=== PATIENT | female | born 1995 | race Caucasian/White ===

== ENCOUNTER 2016-10-09 23:27 | Emergency (ER) | payer OTHER ==
[~2016-10-09] VITALS: Ht 170.2 cm; Wt 62.8 kg
[~2016-10-09 23:27] MED LIST: ALBU8.5H4 IH
[2016-10-09 23:31] VITALS: BP 126/85; PULSE 106; RESP 16; O2SAT 98
--- NOTE | 2016-10-09 23:45 | ED.REPORT ---
HPI-General Illness Date of Service Oct 09, 2016 ED Provider: Amor Meza MD Patient is a 21 year old female with a history of polysubstance abuse who presents to ED complaining of recent changes in her mentation and that she generally feels unwell. The patient states that she has recently placed herself into an environment where she is around alcohol and illicit drugs. She now feels as if "everything is in a fog". Patient states that it takes a long time for her to process information and that everything is slow. The patient admits that she "does not know" if this makes her want to use illicit drugs again. Patient presents to the ED with the AA bible in hand and believes that by her description she is going through "post acute withdrawal". The patient admits that she previously used alcohol and "all mind altering substances" including heroin and methamphetamine. She has not used in the past 5 months. Her typical routine is to go to [facility] in the mornings at [facility]. Her counselor is Stepan Souza. The rest of her day is spent with her boyfriend and that she is trying to start her life over. She also goes to meetings for Alcoholic Anonymous, last going to a meeting this evening. She reports speaking with her sponsor santiago about how she is feeling. Patient states that she has not worked in over a year and she does not currently go to school. Patient denies a mental health diagnosis. She feels that she needs to be admitted to the hospital today. Patient went through detox at [facility] in May of last year and states that this started the process of sobriety. Nursing Notes Stated Complaint: SUBSTANCE ABUSE Chief Complaint: Substance Abuse Nursing Notes Reviewed: Yes Allergies: Coded Allergies: No Known Drug Allergies (Verified Allergy, Unknown, 10/09/16) Cat Dander (Verified Adverse Reaction, Mild, DIFFICULT BREATHING, 10/09/16) Uncoded Allergies: ONIONS (Allergy, Mild, RASH, 08/23/12) Scheduled Albuterol-Expunged Drug, Do Not Renew! (Albuterol-Expunged Drug, Do Not Renew!) 8.5 Gm Hfa.aer.ad 2 PUFFS IH PRN General Time Seen by MD: 23:45 Chief Complaint Altered mental status, Not feeling well Hx Obtained From: Patient Arrived By: Walk-in Sudden in Onset?: No Onset Occurred: More than a week ago... Recent Healthcare: No recent doctor visit, No recent hospitalization Similar Sx Previous: No Past Medical History Past Medical History RAD during childhood History of alcohol and drug abuse, 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 Past Surgical History pilonidal cyst Smoking History Never Smoker Social History Alcohol Use: "Social" Drug Use: IV drugs, Meth Other Social History: Good social support, Local resident Ambulatory Status Independent Review of Systems Full Review of Systems Constitutional: Denies: Chills, Fever Psychiatric: Reports: Change mental status, Depression Complete sys rev & neg: except as marked. Physical Exam Vital Signs Vital Signs Date Time Temp Pulse Resp B/P Pulse Ox O2 Delivery O2 Flow Rate FiO2 10/10/16 01:03 37.6 89 18 121/63 100 Room Air 10/09/16 23:31 36.4 106 16 126/85 98 Room Air Initial VS: Reviewed Extremities: Vascular intact, Neuro intact Neurologic: Alert, Oriented, Nonfocal General/Constitutional: Awake, Alert, Well hydrated Distress / Hydration: Positive: Distress moderate no tremors or evidence of withdrawal Head / Eyes: Atraumatic, Normocephalic, PERRL, EOMI ENT: Airway patent, Mucous membranes moist Neck: Supple, Full range of motion Respiratory / Chest: Breath sounds NL, Breath sounds = bilat, No respiratory distress, No rales, No rhonchi, No wheezing Cardiovascular: Heart rate NL, Regular rhythm, Heart sounds NL, No murmurs Abdomen: Soft, Non-tender, No guarding, No rebound Skin: No rash, Warm, Dry Rash / Lesion Pattern: Negative: Track palafox Psychiatric: No hallucinations Abnormal Mood/Affect: Positive: Depressed, Flat affect Interpretation & Diagnostics Interpretation & Diagnostics: Urine Tox Screen: Negative Breathalyzer: 0.00 Lab Results Interpretation Test 10/09/16 23:55 Hold Urine Received (Received) Re-Eval/Medical Decision Med Decision/Clinical Course 21-year-old female who has been completely clean and sober for 5 months. She has ongoing problems with depression, lack of initiative, and feels that she is having subacute withdrawal symptoms. She does not feel comfortable, although she is not suicidal. Arrangements were made for her to go to [facility]. Source of Hx: Old records Time of Eval: 00:45 Patient Status: Condition improved Re-Evaluation/Progress Note: Patient has been cleared for [facility] and she will be able to go there this morning. Patient understands and agrees with this plan. Discharge instructions and follow-up discussed. All questions were addressed. Return to the ED warnings given. Consultation : Call Returned at: 23:57 Note: Spoke with [facility]. They have a female bed available for the patient. Counseled Regarding: Diagnosis, Need for follow-up, When/why to return to ED Discharge & Departure Primary Impression: Depression Depression Type: reactive depression Qualified Code: F32.9 - Major depressive disorder, single episode, unspecified Additional Impression: Substance abuse Disposition: Home Discharge Condition All VS Reviewed: Yes Condition: Stable Patient Instructions: Major Depression (DC) Additional Instructions: Arrangements were made for you to go to [facility]. GO directly there by cab. Harrison Attestation Portions of this note were transcribed by Ava Stout. I, Dr. Meza personally performed the history, physical exam and medical decision-making; I reviewed and confirmed the accuracy of the information in the transcribed note. Signed by: Harrison Reeves, 10/10/2016 0053 Amor Meza MD Oct 09, 2016 23:45 Ava Stout Oct 09, 2016 23:57
[2016-10-10 01:03] VITALS: BP 121/63; PULSE 89; RESP 18; O2SAT 100
== END 2016-10-10 01:11 | disposition home or self-care (01) ==
LOC: SED 23:27
DX: F32.9 Major depressive disorder, single episode, unspecified (principal); F19.230 Other psychoactive substance dependence with withdrawal, uncomplicated; F10.21 Alcohol dependence, in remission

== ENCOUNTER 2016-10-11 08:39 | Emergency (ER) | payer OTHER ==
[~2016-10-11] VITALS: Ht 170.2 cm; Wt 62.0 kg
[2016-10-11 08:52] VITALS: BP 131/86; PULSE 142; RESP 48; O2SAT 98
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
[2016-10-11] MEDS ORDERED: 0.9% Sodium Chloride 1,000 ML IV ONE (10:05)
[2016-10-11] MEDS ORDERED: Haloperidol 5 mg/mL Inj IM ONE (10:05)
[2016-10-11 10:16] LABS: APPEARANCE,URINE HAZY (CLEAR,HAZY); COLOR,URINE YELLOW (YELLOW); OCCULT BLOOD,URINE LARGE (NEGATIVE); PH,URINE 5.5 (5.0-8.0)
[2016-10-11 10:18] LABS: UROBILINOGEN,URINE NORMAL (NORMAL)
[2016-10-11 10:57] LABS: BASOPHILS % (AUTO) 0.2 % (0-3); EOSINOPHILS % (AUTO) 0 % (0-5); MONOCYTES % (AUTO) 9.1 % (4-12); Mean Corpuscular Hemoglobin 27.7 pg (27.0-35.0); Mean Corpuscular Volume 79.8 fL (81-100); NEUTROPHILS % (AUTO) 80.4 % (40-74); Platelet Count 259 bil/L (150-400)
[2016-10-11 11:27] VITALS: BP 125/48; PULSE 101; RESP 16; O2SAT 99
[2016-10-11 15:39] VITALS: BP 92/55; PULSE 92; O2SAT 97
[2016-10-11 18:45] VITALS: BP 103/63; PULSE 120; O2SAT 96
[2016-10-11 19:05] VITALS: BP 103/63; PULSE 120; RESP 16; O2SAT 96
== END 2016-10-11 19:05 | disposition home or self-care (01) ==
LOC: SED 08:39
DX: F43.0 Acute stress reaction (principal); F19.20 Other psychoactive substance dependence, uncomplicated; F17.200 Nicotine dependence, unspecified, uncomplicated
CPT/HCPCS: 36415; 80053; 81000; 81025; 84443; 85025; 87086; 87088; 93005; 96360; 96372; 99285; G0480; J1200; J1630; J2060; J7030

== ENCOUNTER 2016-10-22 12:19 | Emergency (ER) | payer OTHER ==
[~2016-10-22] VITALS: Ht 170.2 cm; Wt 63.0 kg
[2016-10-22 12:32] VITALS: BP 99/66; PULSE 86; RESP 10; O2SAT 96
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
[2016-10-22 17:29] LABS: BASOPHILS % (AUTO) 0.5 % (0-3); EOSINOPHILS % (AUTO) 1.4 % (0-5); MONOCYTES % (AUTO) 18.6 % (4-12); Mean Corpuscular Hemoglobin 27.3 pg (27.0-35.0); Mean Corpuscular Volume 80.4 fL (81-100); NEUTROPHILS % (AUTO) 56.3 % (40-74); Platelet Count 221 bil/L (150-400)
[2016-10-22 18:59] VITALS: BP 114/68; PULSE 100; O2SAT 95
== END 2016-10-22 19:20 ==
LOC: SED 12:19
DX: F43.0 Acute stress reaction (principal); F17.200 Nicotine dependence, unspecified, uncomplicated; Z87.09 Personal history of other diseases of the respiratory system

== ENCOUNTER 2016-10-25 09:05 | Inpatient (IN) | payer MEDICAID, OTHER ==
[~2016-10-25] VITALS: Ht 162.6 cm; Wt 61.2 kg
[2016-10-25 09:23] VITALS: BP 136/92; PULSE 94; RESP 16; O2SAT 98
--- NOTE | 2016-10-25 09:30 | ED.REPORT ---
HPI-Psychiatric Illness Date of Service Oct 25, 2016 ED Provider: Jesus Nguyen MD 21 year old female with a history of suicide attempt, and polysubstance abuse presents to the ER due to anxiety exacerbation, and inability to communicate, per male railroad hand. Associated symptom of insomnia in recent days. Contract Accountant mentions that he has seen her in a similar state some weeks ago. He denies any recent expression of suicidal ideation, homicidal ideation, or similar from the patient. Patient was seen here in the ER three days ago for similar. History is difficult to obtain due to patient's current catatonia. Nursing Notes Stated Complaint: DISTRESS,UNABLE TO COMMUNICATE Chief Complaint: Psychiatric Complaint Nursing Notes Reviewed: Yes Allergies: Coded Allergies: No Known Drug Allergies (Verified Allergy, Unknown, 10/09/16) Cat Dander (Verified Adverse Reaction, Mild, DIFFICULT BREATHING, 10/09/16) Uncoded Allergies: ONIONS (Allergy, Mild, RASH, 08/23/12) No Active Prescriptions or Reported Meds General Time Seen by MD: 09:15 Chief Complaint Anxious, Other (Unable to Communicate) Hx Obtained From: Spouse Arrived By: Walk-in Onset Occurred: Onset unknown Related History: Reports: Alcohol abuse, Illicit drug use, Prior suicide attempt(s) Recent Healthcare: Recent doctor visit Similar Sx Previous: Yes Risk-Psychiatric Illness Suicide Risk Stratification Suicide Risk Factors - Adult: : Alcohol use: Previous attempt: Substance abuse RF Statements: Risk factors reviewed Past Medical History Past Medical History RAD during childhood History of alcohol and drug abuse, 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 Past Surgical History pilonidal cyst Smoking History Current Every Day Smoker Social History Alcohol Use: "Social" Drug Use: IV drugs, Meth Other Social History: Good social support, Local resident Occupation lives with roommate 10/22/2016 has supportive [facility] Ambulatory Status Independent Review of Systems Unable to Obtain ROS Uncooperative (Catatonic) Physical Exam Initial Vital Signs Vital Signs (First) Date Time Temp Pulse Resp B/P Pulse Ox O2 Delivery O2 Flow Rate FiO2 10/25/16 09:23 36.4 94 16 136/92 98 Room Air Initial VS: Reviewed Head / Eyes: Atraumatic, Normocephalic Neck: Supple, Non-tender, Full range of motion Extremities: Vascular intact, Neuro intact, No swelling, No tenderness Skin: Warm, Dry, No cyanosis General/Constitutional: Awake, Alert, Well developed, Well nourished Unable to Evaluate: Positive: Catatonic Interpretation & Diagnostics Lab Results Interpretation Result Diagram: 10/25/16 0957 10/25/16 0957 Test 10/25/16 09:57 10/25/16 16:11 White Blood Count 4.0th/mm3 (3.8-10.1) Red Blood Count 4.60mil/mm3 (3.90-5.20) Hemoglobin 12.7g/dL (12.0-15.6) Hematocrit 37.2% (35.0-46.0) Mean Corpuscular Volume 80.9fL (81-100) Mean Corpuscular Hemoglobin 27.6pg (27.0-35.0) Mean Corpuscular Hemoglobin Concent 34.1% (32.0-37.0) Red Cell Distribution Width 13.9% (12.3-15.4) Platelet Count 220bil/L (150-400) Neutrophils (%) (Auto) 62.5% (40-74) Lymphocytes (%) (Auto) 25.6% (14-46) Monocytes (%) (Auto) 11.6% (4-12) Eosinophils (%) (Auto) 0% (0-5) Basophils (%) (Auto) 0.3% (0-3) Sodium Level 139mEq/L (134-144) Potassium Level 3.6mEq/L (3.5-5.2) Chloride Level 104mEq/L (97-108) Carbon Dioxide Level 16mmol/L (18-29) Blood Urea Nitrogen 7mg/dL (6-20) Creatinine 0.52mg/dL (0.57-1.00) Estimat Glomerular Filtration Rate 213mL/min (>59) Glucose Level 103mg/dL (60-99) Calcium Level 8.8mg/dL (8.5-10.1) Total Bilirubin 0.3mg/dL (0.0-1.2) Aspartate Amino Transf (AST/SGOT) 16U/L (0-50) Alanine Aminotransferase (ALT/SGPT) 10U/L (0-32) Alkaline Phosphatase 71U/L (25-150) Total Protein 7.4g/dL (6.4-8.4) Albumin 4.5g/dL (3.4-5.0) Thyroid Stimulating Hormone (TSH) 1.580uIU/mL (0.450-4.500) Hold Holloway Top Tube Received (Received) Alcohols < 10mg/dL (0-10) Hold Urine Received (Received) Re-Eval/Medical Decision Med Decision/Clinical Course 21-year-old female history of substance abuse, suicidal ideation presenting brought in by boyfriend after she has not been talking for several days. Also with no sleep. Patient refuses to answer my questions. She appears catatonic on exam. She does follow with her eyes. Her urine tox is negative. Her labs show no medical indication for her symptoms. I believe she should likely be admitted to the psychiatric floor. The DPOA is to evaluate. Passed off to Dr Gonzalez at shift change. Source of Hx: Old records Consultation : Call Returned at: 17:46 Note: Discussed patient case with mental health professional. Recommends admission. Discharge & Departure Shift Change Sign-Out Patient Care Transferred: Yes Discussed Complaint(s): Yes Laboratory Evaluation: Lab evaluation discussed Discharge Condition All VS Reviewed: Yes Condition: Stable Referrals: NOPCP (PCP) Care Transferred to: Dr. Gonzalez Care Transferred at: 18:00 Harrison Attestation Portions of this note were transcribed by Kinza Cannon. I, Dr. Nguyen, personally performed the history, physical exam and medical decision-making; I reviewed and confirmed the accuracy of the information in the transcribed note. Signed by: Harrison Connor, 10/25/2016 and 17:46 Jesus Nguyen MD Oct 25, 2016 09:30 KINZA CANNON Oct 25, 2016 09:48
[2016-10-25 10:07] LABS: BASOPHILS % (AUTO) 0.3 % (0-3); EOSINOPHILS % (AUTO) 0 % (0-5); MONOCYTES % (AUTO) 11.6 % (4-12); Mean Corpuscular Hemoglobin 27.6 pg (27.0-35.0); Mean Corpuscular Volume 80.9 fL (81-100); NEUTROPHILS % (AUTO) 62.5 % (40-74); Platelet Count 220 bil/L (150-400)
[2016-10-25 18:27] VITALS: BP 118/68; PULSE 83; RESP 18; O2SAT 99
[2016-10-25 21:19] VITALS: BP 147/90; PULSE 140; RESP 32; O2SAT 99
[2016-10-25] MEDS ORDERED: MELA5TAB14 PO (21:41)
[2016-10-25] MEDS ORDERED: KETO5DRO68 BOTH_EYES (21:41)
[2016-10-25] MEDS ORDERED: MULT-140 PO (21:41)
[2016-10-25 22:23] VITALS: BP 95/51; PULSE 82; RESP 22; O2SAT 92
[2016-10-25] MEDS ORDERED: Magnesium Hydroxide 10 mL Oral Concentration PO PRN (23:30)
[2016-10-25] MEDS ORDERED: Benzocaine-Menthol Lozenge 2/Pkg PO PRN (23:30)
[2016-10-25] MEDS ORDERED: Alum-Mag Hydrox-Simeth 30 mL Suspension PO PRN (23:30)
[2016-10-25] MEDS: LORazepam 1 mg Tablet PO PRN (23:55)
--- NOTE | 2016-10-26 04:44 | NUR ---
Nursing Admit note DMITRI'ed patient from our ED deemed Gravely Disabled at 1999 on 10/25/16. Pt is on a 72 hour DMITRI. Pt medicated with Valium in ED and received Ambien and Ativan upon arrival to unit at 2215. Pt behavior in catatonic in nature. Pt ambulates around unit and into other patients rooms. Pt follows direction in an vary latent manner. Pt able to perform ADLs independently if she wants to. Pt was seen in ED on 10/22/16 with c/o difficulty with depression and increased difficulty speaking to people or leaving home to perform ADLs. 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 Pt clean and sober since 05/29 and involved with [employer]. 0445 Pt out to common area pointing at mouth and reported in whisper that she cant talk. Pt with significant halitosis and opens her mouth very minimally. Pt given water and Ativan at that time and was noted to then urinate on the floor and ambulate back to her room.
--- NOTE | 2016-10-26 05:22 | NUR ---
Nursing note: Please disregard duplicate interventions entered in error on wrong patient. IT notified for assistance to correct.
[2016-10-26] MEDS: LORazepam 1 mg Tablet PO PRN ×3 (05:51→17:59)
--- NOTE | 2016-10-26 11:42 | NUR ---
Nursing Day Shift- S-"Tell me what I can do to help with your questions. I'm scared. What should I do." O- Pt. appeared asleep at the start of the day shift. She remained that way until 0900, for 5 plus total hours of sleep. Pt. walked out to the , stopped and stood still with a lost expression. Pt. was shown her breakfast tray and continued to stand without touching her food. Staff asked the Pt. how she was feeling, She stood staring intently and slowly opened her mouth slightly, but no words were spoken. Pt. slowly, after a long delay, had a few brief responses to multiple questions. She denied being in pain, Stated "yes" to loud bothersome voices and thoughts of harming herself. She denied drug use other then Marijuana in the past few weeks, and the above sentence was the longest she spoke. Pt. was able to contract to not harm herself here. Dr. Molina was informed and ordered Ativan 1 mg PO PRN. It was given at 1015. Pt. then rested in her bed after being escorted there by staff. She came back out 1 hour later and appeared slightly less lost and confused. She eat 40% lunch, then returned to her room. A- Internally preoccupied, fearful, lost and confused appearing. Ativan 1 mg slightly helpful. Pt. denied having any home medications. P- Pt. was able to say she had been at [facility]. Obtain records. Cont. TP.
[2016-10-26 12:04] VITALS: BP 125/85; PULSE 167; RESP 14
[2016-10-26] MEDS ORDERED: Ketotifen 0.025% 5 mL Ophthalmic Solution BOTH_EYES PRN (13:40)
[2016-10-26] MEDS: risperiDONE 1 mg Tablet PO SCH ×2 (14:44→20:58)
[2016-10-26] MEDS ORDERED: EYE BOTH_EYES PRN (15:54)
[2016-10-26] MEDS ORDERED: KETOTIFEN BOTH_EYES PRN (15:54)
--- NOTE | 2016-10-26 16:50 | NUR ---
Observations 0700 to 1900 Pt affect and mood was flat, mute, confused and preoccupied. Pt eye contact was ok. Pt attended community meeting and set a daily goal. Pt was unsocial with staff when approached giving a blank stare with lips quivering. Pt walked in hallway with peer. Pt attended meals in D.R. picked at breakfast but ate 50% of lunch. Pt maintained behavior throughout the shift. Pt was polite, pleasant and cooperative. Pt was isolative and in her room most of the shift. Pt is internally preoccupied and responding to internal stimuli. Pt was observed every 15 minutes throughout the shift as ordered. Addendum: 10/27/16 at 1125 by [facility] DMITRI patient still unable to sign admission paperwork due to confusion but she did verbally agree to safety no harm contract.
--- NOTE | 2016-10-26 18:10 | NUR ---
Case Management/Counseling S/O: Patient only slept 2.5 hours last night. She denies S/I and H/I. She also denies auditory and visual hallucinations. Depression is 0/10 and anxiety is "high"/10. A: Patient is cooperative, internally preoccupied, fearful, lost, confused, latent speech, poor insight, poor judgment. P: Follow care plan, coordinate out-patient providers.
--- NOTE | 2016-10-26 22:56 | NUR ---
NURSING NOTE [id number] Mood: unable to solicit a mood statement from pt. Affect: blunted, restricted, [id number] facial expressions Behavior: resting in bed at start of shift until 1800 when she came out to the DR. She was given a dinner tray but just stared at it and pierced a piece of food with her fork but could not raise it to eat. She stared helplessly at this magazine writer as though she did not know what to do next. Despite prompting, pt. did not eat. When asked if she was in pain she nodded but could not articulate where. She pointed to her L shoulder. Ibuprofen 600 mg given. Her boyfriend visited. Later in the shift she was able to express herself a bit more and approached this magazine writer and asked to take a shower and asked for feminine products and clean clothes. She was med compliant this evening. Thought processes: pt. unable to answer any of this writers questions re: thought content. Pt. shook head when asked if she was suicidal. She appears lost and confused. PRNs: Ativan 1 mg @ 1800 Ibuprofen 600 mg @ 1800 Ambien 5 mg @ HS
--- NOTE | 2016-10-27 05:31 | NUR ---
nursing, nights, 11-7 s/o- has appeared to sleep after 2129 during q 15 minute assessments. a- no apparent distress. p- monitor behavior/emotional state, quality, times and amount of sleep, use and effect of medication. sol
--- NOTE | 2016-10-27 07:18 | HP ---
[address] [address] HISTORY AND PHYSICAL PATIENT: BEVERLY BOJORQUEZ : 1995 MR#: [id number] ADMIT: 10/25/2016 JOB ID: [id number] IDENTIFICATION: The patient is a 21-year-old, single white female, currently living with a roommate in an apartment. She has a supportive boyfriend. She is currently unemployed and lives on [facility]. REASON FOR ADMISSION: The patient had increase in anxiety that progressed to the point where she was unable to communicate and catatonic. HISTORY OF PRESENT ILLNESS: The patient presents today for evaluation and treatment of psychotic symptoms. I met with her for a 60-minute evaluation and reviewed course and records kept by both [facility], as well as an admission from [facility] in [place] one year ago. Client's main issue is psychosis with co-occurring issues of a history of severe polysubstance abuse. The condition has been developing over the past several years and at present, it is of a severe intensity manifesting with symptoms of catatonia, poverty of thought, bizarre behavior (here on the unit she squatted on the floor and peed), difficult to redirect and latent responses. All of the above are made worse by poor sleep. She reports insomnia for the past month, as well as severe anxiety. All the above are improved with rest, when she takes her medications regularly and when she gets regular sleep. She is currently presenting with signs of extreme emotional liability, marked cognitive deficits, severe impairment in reality testing and coping. Client could not participate in a psychiatric review of systems or physical review of systems. MEDICATIONS: None. Client in the past has had trials of Depakote and Invega and per [facility], "poor response." Client had a trial of Navane from [facility] with again "poor response." Client was treated with Clozaril titrated to 200 mg per day, and they reported that she was more organized and less pressured in speech. She has not been taking these medications for an unknown amount of time. ALLERGIES: None. ILLNESSES: None. FAMILY MEDICAL HISTORY: Unknown. PAST PSYCHIATRIC HISTORY: Client was detained on an involuntary treatment hold one year ago at [facility] in [place]. She spent two months for a very similar presentation with catatonia and latent responses. Please see medication trials as mentioned in the HPI. Client was also diagnosed with reactive attachment disorder from childhood. SOCIAL HISTORY: Client was unable to participate in any meaningful history. She could not describe her childhood school history or history of trauma. For drug and alcohol use, there are reports in the chart that she has been "sober" since April 2016, but I have no verification of this. LETHALITY: There are reports in the chart that she has had suicide attempts but I do not have the specifics and patient could not tell. She did shake her head no that she was not having suicidal or homicidal ideation. RELATIONSHIP: Living alone but has a boyfriend. RASTAFARI: None. LEGAL: None. PHYSICAL EXAMINATION: Reviewed from ED and essentially normal except for vital signs. Blood pressure 125/85, pulse between 130 and 150, respirations 14, afebrile. LABORATORIES: CBC, liver electrolytes, thyroid normal. Urine drug screen negative. MENTAL STATUS EXAMINATION: Client neatly dressed. She had very poor eye contact and when she did it tended to be intense and staring blankly. Her behavior was lethargic and withdrawn. Attitude aloof and detached. Speech monotone, mute, or one-word responses. Mood anxious. Affect intense and highly restricted. Thought process, client is unable to relate a coherent history. She appears to be responding to internal stimuli. She is staring blankly in response to almost all questions. Thought content, significant for poverty of thought and extreme latent responses. Thought content, client cannot answer questions about orientation, memory, or attention. Insight and judgment markedly impaired. Impulse control highly contained yet rigid. Unable to handle impulses of sadness and fear. Reality testing severely impaired. Competence to handle current stressors, currently being overwhelmed. IMPRESSION: The patient is a 21-year-old, white female, who reportedly has had three different inpatient hospitalizations over the past two years for psychosis and catatonia. She currently is in an extreme state of fear with high heart rate, anxiety and catatonic behaviors. She is a poor historian and much of my information was gleaned from reviewing charts from [facility] and the ED record. She has reportedly had trials of Depakote, Invega, Navane and Clozaril. There were poor responses mentioned but no details given to the trials of Invega and Navane. Client is reportedly trying to pursue sobriety and has a history of methamphetamine, heroin and alcohol abuse. There are reports that she has been sober for six months and her urine tox is clean. She has a supportive boyfriend and had been planning to go to a job interview today before having an exacerbation of symptoms. DIAGNOSES: AXIS I 1. Psychosis, unspecified, rule out major depressive disorder with psychosis. 2. Rule out substance-induced psychosis. 3. Rule out bipolar mood disorder with psychosis. 4. Rule out schizophrenia or trauma. AXIS II Defer. AXIS III None. AXIS IV Unknown. AXIS V Current Global Assessment of Functioning equal to 25. PLAN: Recommend client be admitted to our unit and be provided with a high degree of safety through the structure and active adult engagement she will receive here. Will have her participate in one-to-one unit and group activities focused on improving coping skills and reality based thinking. We will offer client Risperdal 1 mg twice a day and Klonopin 0.5 mg twice a day to target psychotic symptoms and anxiety. Will adjust as needed over the next several days. Client is on a 72-hour involuntary treatment hold, and will have a chance to talk to her shaper machine hand and the trial court judge on Monday.
[2016-10-27] MEDS: risperiDONE 1 mg Tablet PO SCH ×2 (08:36→20:34)
--- NOTE | 2016-10-27 10:07 | NUR ---
Nursing: correction of documentation admission interventions that were inadvertently documented on wrong patient were corrected and undone
[2016-10-27 12:27] VITALS: BP 106/70; PULSE 102; RESP 16
--- NOTE | 2016-10-27 14:22 | PCM.PNPSY ---
Subjective Date of Service Oct 27, 2016 Subjective I spent 30 minutes both reviewing treatment plan and providing supportive/ educational psychotherapy. I spent more than 50% of the time counseling the patient. I reviewed the treatment plan with the patient and discussed options available including the potential risks, benefits and side effects. Jonna was nearly completely mute staring at me with a blank wide open eyes. Even though she was mute she was an obvious distress with frequent tearfulness and emotional lability. Staff reports that she has been isolative and not participating well in one-to-one unit and group activities. She slept 8.5 hours and is unable to participate in a psychiatric symptoms review. She denies medication side effects. Patient was not able to identify her medications for what they were used to treat. She did not appear to understand the need for medications by the questions she asked during our discussion. Current Medications Current Medications Clonazepam 0.5 mg BID PO Last administered on 10/27/16 08:36; Admin Dose 0.5 MG ; Start 10/26/16 at 13:45 Diazepam 5 mg ONCE ONCE PO Last administered on 10/25/16 21:28; Admin Dose 5 MG; Start 10/25/16 at 21:20; Stop 10/25/16 at 21:21; Status DC Ibuprofen 600 mg Q6H PRN PO Last administered on 10/26/16 18:05; Admin Dose 600 MG; Start 10/25/16 at 23:30 Lorazepam 1 mg Q4H PRN PO Last administered on 10/26/16 17:59; Admin Dose 1 MG ; Start 10/25/16 at 23:30 Nicotine 1 patch ONCE ONCE TOPICAL Last administered on 10/25/16 18:47; Admin Dose 1 PATCH; Start 10/25/16 at 18:35; Stop 10/25/16 at 18:36; Status DC Risperidone 1 mg BID PO Last administered on 10/27/16 08:36; Admin Dose 1 MG; Start 10/26/16 at 13:45 Zolpidem Tartrate START WITH 5 MG AND DECEMBER REP... HS PRN PO Last administered on 10/26/16 20:59; Admin Dose 5 MG; Start 10/25/16 at 23:30 Mental Status Exam Vital Signs Vital Signs Date Time Temp Pulse Resp B/P Pulse Ox O2 Delivery O2 Flow Rate FiO2 10/27/16 12:27 36.3 102 16 106/70 Appearance: Disheveled Attitude: Other (bewildered) Behavior: Overtly anxious, Tearful, Distractible Affect: Labile Mood: Fearful Thought Process/Associations: Blocking, Other (poverty of thought) Speech Production: Muter Speech Rate: Lags/Latency Thought Content: Negativistic, Perseveration Delusions: Paranoid (Endorses) Consciousness: Hyper-vigilant Orientation: Unable to assess Memory: Untestable Estimate Intellectual Function: Unable to assess Attention/Concentration & Cogn: Impaired Insight: Limited Judgement: Limited Result Diagram: 10/25/16 0957 10/25/16 0957 Mental Health Plan The patient is a 21-year-old, white female, who reportedly has had three different inpatient hospitalizations over the past two years for psychosis and catatonia. She currently is in an extreme state of fear with high heart rate, anxiety and catatonic behaviors. She is a poor historian and much of my information was gleaned from reviewing charts from [facility] and the ED record. She has reportedly had trials of Depakote, Invega, Navane and Clozaril. There were poor responses mentioned but no details given to the trials of Invega and Navane. Client is reportedly trying to pursue sobriety and has a history of methamphetamine, heroin and alcohol abuse. There are reports that she has been sober for six months and her urine tox is clean. She has a supportive boyfriend and had been planning to go to a job interview today before having an exacerbation of symptoms. [place] AXIS I 1. Psychosis, unspecified, rule out major depressive disorder with psychosis. 2. Rule out substance-induced psychosis. 3. Rule out bipolar mood disorder with psychosis. 4. Rule out schizophrenia or trauma. AXIS II Defer. AXIS III None. AXIS IV Unknown. AXIS V Current Global Assessment of Functioning equal to 25. Medications Treatments Patient is being provided with a high degree of safety through the structure and active adult engagement. We will focus on developing improved coping skills and identifying stressors that may have led to current episode. We will attempt to: Integrate into therapeutic groups, milieu and individual therapy. Maintain in a closely monitored and structured unit Provide low-stimulation environment Obtain collateral data to assist in treatment planning Assess degree of lability of affect and impulse control Complete safety plan Decrease frequency of relapse and need for re-hospitalization Establish a consistent sleep pattern Medication effective in stabilization of mood and/or thought process Reduce the risk of imminent harm to self and/or others by providing a safe environment Tolerates medication without side effects Patient will be on the following psychiatric medications: Risperdal 1 mg twice a day Klonopin 0.5 mg twice a day Education: Educate patient about recreational drug use as an etiology Educate about metabolic etiologies related to obesity Address patient's legal status Patient is on a 72 hour involuntary treatment hold. Patient will be given the opportunity to talk to her paste maker and the conciliation court judge Eleno Molina MD Oct 27, 2016 14:22
--- NOTE | 2016-10-27 17:07 | NUR ---
NURS DAY [id number] Orientation: x3 Mood: "I feel confused." Endorses anxiety and some depression. Affect: Blunted. Jonna often appears lost and confused. Behavior: Jonna was in and out of day room much of shift, pacing, seeking staff attention, sitting at dining room tables. Participated in PM self-care 'bingo' group. Thought Process/Content: [place], goal-oriented. Slow to form words; can express complete thoughts with time. Im not suicidal. Jonna expressed interest in treatment, sought writers advice about treatment multiples time during shift. Accounts Receivable Associate spent 30+ minutes in simple conversation with Jonna, which she said "helped [her] talk." Jonna expressed preference for conversation about favorite things rather than more complex ideas. Nursing Note/PRN: Showered with prompting around 1200.
--- NOTE | 2016-10-27 17:26 | NUR ---
[facility] Day Shift Pt maintained behavioral control throughout the shift. Pt affect appears blunt, flat. Pt remains latent in speech and movement, but shows gradual improvements in both as the shift progresses. Pt appears very indecisive in regards to unit activities and attending ADLs (pt takes several hours to make up her mind regarding laundry and showers, must be heavily encouraged to remain in group activities). Pt is appropriate with staff and peers when active on the unit, but is not overly social (additionally, pt latency makes interaction difficult). Pt attended community meeting and group activities throughout the shift. Pt attended all meals and ate approx 80% of all meals.
--- NOTE | 2016-10-27 17:56 | NUR ---
Case Management/Counseling S: "I'm really confused." O: Patient slept 8.5+ hours last night. She denies S/I and H/I. She also denies auditory and visual hallucinations. Depression is 0/10 and anxiety is "yes"/10. When asked her mood, patient stated, "Confused." A: Patient is disheveled, anxious, tearful, distractible, fearful, labile, paranoid, hyper-vigilant, mute, limited insight, limited judgment. P: Follow care plan, coordinate out-patient providers.
[2016-10-28] MEDS: LORazepam 1 mg Tablet PO PRN (00:52)
--- NOTE | 2016-10-28 06:39 | NUR ---
Nursing Note Claims Sorter 7pm to 7am Pt seen in common area visiting with boyfriend at start of shift. Earlier part of shift pt. exhibited less psychomotor agitation, thoughts less latent and quicker to answer when spoken to. Affect blunted, mood dysphoric. Pt appears childlike, often needing support and direction. Pt reports depression is 5/10 and anxiety 8/10, I am anxious because I miss my family. Pt has poor insight, judgement fair. Pt indicated she was on her menses and stated that she did not want to use tampons because a few days ago she had lost track of time and left the tampon in for several days before removing it. Pt inquired about the signs of toxic shock syndrome (TSS) and provided information. Pt is afebrile and does not endorse any symptoms of TSS. Pt denies SI plan or intent and denies A/V H. At 0100 Pt woke up came to the nursing station asking for a prn for anxiety. Pt given Ativan 1mg p.o. Pts affect was fearful, posture was rigid. Attempted to assess trigger for anxiety or if she was having AH but pt. unable to provide information. She was very guarded, exhibited significant thought blocking, was unable to express her thoughts and appeared very internally preoccupied. While attempting to talk to pt., she turned and walked a few steps and then turned around and came back and did this twice. Monitored pt. with q 15 minutes checks for safety location and accountability
[2016-10-28] MEDS: risperiDONE 1 mg Tablet PO SCH ×2 (08:18→19:57)
--- NOTE | 2016-10-28 12:33 | NUR ---
Nursing Day Shift- S- "I'm not depressed. It's hard for me to rate things. I went to see my grandfather and he was really drunk and I could smell the alcohol, then he went for a pot run with my sister, and it really upset me to see how badly he was doing since my grandmother . That's when I stopped talking. Maybe 2-3 weeks ago. I was drinking a lot, and smoking, and I was trying to get clean." O- Pt. was asleep at the start of the day shift. She woke after eight and eat breakfast. Pt. attended lunch and eat 75%. Pt. reported feeling over sedated during the daytime. She asked to speak with staff. She was still a rather loose historian, but was able to express the above. She began to cry gently when talking about her grandmother who had this past March. A- Pt. rated anxiety as 5/10. She appears less frozen and confused today. P- Cont. BHTP.
--- NOTE | 2016-10-28 13:29 | PCM.PNPSY ---
Subjective Date of Service Oct 28, 2016 Subjective I spent 30 minutes both reviewing treatment plan and providing supportive/ educational psychotherapy. I spent more than 50% of the time counseling the patient. I reviewed the treatment plan with the patient and discussed options available including the potential risks, benefits and side effects. Jonna was nearly completely mute staring at me with a blank wide open eyes but she had written out a complete page of concerns. The concerns raised from practical to questions about her medications. She just struggles with direct contact and is unable to respond to direct questions at this time. Even though she was mute she was less distress and was no longer emotional lability. Staff reports that she has been isolative and but is attempting to participate in one- to-one unit and group activities. She slept 7 hours and denies auditory hallucinations and there were no delusional themes to her thought content.. She denies medication side effects. Patient was not able to identify her medications for what they were used to treat. She did not appear to understand the need for medications by the questions she asked during our discussion. Current Medications Current Medications Clonazepam 0.5 mg BID PO Last administered on 10/28/16t 08:18; Admin Dose 0.5 MG ; Start 10/26/16 at 13:45 Risperidone 1 mg BID PO Last administered on 10/28/16 08:18; Admin Dose 1 MG; Start 10/26/16 at 13:45 Mental Status Exam Appearance: Disheveled Attitude: Other (bewildered) Behavior: Overtly anxious, Tearful, Distractible Affect: Labile Mood: Fearful Thought Process/Associations: Blocking, Other (poverty of thought) Speech Production: Muter Speech Rate: Lags/Latency Thought Content: Negativistic, Perseveration Delusions: Paranoid (Endorses) Consciousness: Hyper-vigilant Orientation: Unable to assess Memory: Untestable Estimate Intellectual Function: Unable to assess Attention/Concentration & Cogn: Impaired Insight: Limited Judgement: Limited Result Diagram: 10/25/16 0957 10/25/16 0957 Mental Health Plan The patient is a 21-year-old, white female, who reportedly has had three different inpatient hospitalizations over the past two years for psychosis and catatonia. She currently is in an extreme state of fear with high heart rate, anxiety and catatonic behaviors. She is a poor historian and much of my information was gleaned from reviewing charts from [facility] and the ED record. She has reportedly had trials of Depakote, Invega, Navane and Clozaril. There were poor responses mentioned but no details given to the trials of Invega and Navane. Client is reportedly trying to pursue sobriety and has a history of methamphetamine, heroin and alcohol abuse. There are reports that she has been sober for six months and her urine tox is clean. She has a supportive boyfriend and had been planning to go to a job interview today before having an exacerbation of symptoms. Over the past 24 hours she has shown gradual and steady improvement in thought organization and Mood stability. [place] AXIS I 1. Psychosis, unspecified, rule out major depressive disorder with psychosis. 2. Rule out substance-induced psychosis. 3. Rule out bipolar mood disorder with psychosis. 4. Rule out schizophrenia or trauma. AXIS II Defer. AXIS III None. AXIS IV Unknown. AXIS V Current Global Assessment of Functioning equal to 25. Medications Treatments Patient is being provided with a high degree of safety through the structure and active adult engagement. We will focus on developing improved coping skills and identifying stressors that may have led to current episode. We will attempt to: Integrate into therapeutic groups, milieu and individual therapy. Maintain in a closely monitored and structured unit Provide low-stimulation environment Obtain collateral data to assist in treatment planning Assess degree of lability of affect and impulse control Complete safety plan Decrease frequency of relapse and need for re-hospitalization Establish a consistent sleep pattern Medication effective in stabilization of mood and/or thought process Reduce the risk of imminent harm to self and/or others by providing a safe environment Tolerates medication without side effects Patient will be on the following psychiatric medications: Risperdal 1 mg twice a day Klonopin 0.5 mg twice a day Education: Educate patient about recreational drug use as an etiology Educate about metabolic etiologies related to obesity Address patient's legal status Patient is on a 72 hour involuntary treatment hold. Patient will be given the opportunity to talk to her seaman officer and the appellate court clerk Eleno Molina MD Oct 28, 2016 13:29
[2016-10-28 16:00] VITALS: BP 124/83; PULSE 132; RESP 16
--- NOTE | 2016-10-28 16:16 | NUR ---
Case Management/Counseling S: "I'm really confused." O: Patient slept 7 hours last night. She denies S/I and H/I. She also denies auditory and visual hallucinations. She did not rate depression or anxiety. A: Patient is cooperative, anxious, fearful, labile, distractible, paranoid, perseveration, limited insight, limited judgment. P: Follow care plan, coordinate out-patient providers.
--- NOTE | 2016-10-28 18:54 | NUR ---
[facility] Day Shift Pt maintained behavioral control throughout the shift. Pt affect appears blunt, flat. Pt remains latent in speech and movement, but shows gradual improvements in both as the shift progresses (more so than noted on previous shift). Pt remains indecisive in regards to unit activities and attending ADLs, though to a lesser degree than noted on previous shift. Pt is appropriate with staff and peers when active on the unit and appears more social than noted on previous shift. Pt participated in group activities throughout the shift. Pt attended all meals and ate approx 80% of all meals.
--- NOTE | 2016-10-28 21:21 | NUR ---
nursing note 3pm-11pm S)"can you look into my paperwork and find the DR I saw at urgent care? I need a primary DR" O) cooperative, took medications, showered changed into clean scrubs, attended wrap up meeting rated day as "good", has delayed responses at times and needs things repeated, boyfriend here for visit, watched TV A) improving, cooperative, affect flat P) monitor medication effectiveness
--- NOTE | 2016-10-29 06:11 | NUR ---
nursing, nights, 11-7 s/o- has appeared to sleep after midnight during q 15 minute assessments. a- no apparent distress. p- monitor behavior/emotional state, quality, times and amount of sleep, use and effect of medication. sol
[2016-10-29] MEDS: risperiDONE 1 mg Tablet PO SCH ×2 (09:17→20:16)
[2016-10-29 10:59] VITALS: BP 117/78; PULSE 112; RESP 16
--- NOTE | 2016-10-29 13:45 | PCM.PNPSY ---
Subjective Date of Service Oct 29, 2016 Subjective I spent 30 minutes both reviewing treatment plan and providing supportive/ educational psychotherapy. I spent more than 50% of the time counseling the patient. I reviewed the treatment plan with the patient and discussed options available. Jonna was less mute and her eye contact was less bizarre. She just struggles with direct contact and is unable to respond to direct questions at this time. Even though she was mute she was less distressed and was no longer emotional lability. Staff reports that she has been isolative and but is attempting to participate in one-to-one unit and group activities. She slept 6 hours and denies auditory hallucinations and there were no delusional themes to her thought content.. She denies medication side effects. Patient was not able to identify her medications for what they were used to treat. She did not appear to understand the need for medications by the questions she asked during our discussion. Mental Status Exam Vital Signs Vital Signs Date Time Temp Pulse Resp B/P Pulse Ox O2 Delivery O2 Flow Rate FiO2 10/29/16 10:59 36.5 112 16 117/78 Appearance: Neat/well groomed Attitude: Pleasant, Cooperative Behavior: No unusual behavior, Distractible Affect: Flat Mood: Fearful Thought Process/Associations: Blocking, Other (poverty of thought) Speech Production: Muter Speech Rate: Lags/Latency Thought Content: Negativistic, Perseveration Delusions: Paranoid (Endorses) Consciousness: Hyper-vigilant Orientation: Unable to assess Memory: Untestable Estimate Intellectual Function: Unable to assess Attention/Concentration & Cogn: Impaired Insight: Limited Judgement: Limited Result Diagram: 10/25/16 0957 10/25/16 0957 Mental Health Plan The patient is a 21-year-old, white female, who reportedly has had three different inpatient hospitalizations over the past two years for psychosis and catatonia. She currently is in an extreme state of fear with high heart rate, anxiety and catatonic behaviors. She is a poor historian and much of my information was gleaned from reviewing charts from [facility] and the ED record. She has reportedly had trials of Depakote, Invega, Navane and Clozaril. There were poor responses mentioned but no details given to the trials of Invega and Navane. Client is reportedly trying to pursue sobriety and has a history of methamphetamine, heroin and alcohol abuse. There are reports that she has been sober for six months and her urine tox is clean. She has a supportive boyfriend and had been planning to go to a job interview today before having an exacerbation of symptoms. Over the past 48 hours she has shown gradual and steady improvement in thought organization and Mood stability. She remains markedly impaired but appears to be recovering. [place] AXIS I 1. Psychosis, unspecified, rule out major depressive disorder with psychosis. 2. Rule out substance-induced psychosis. 3. Rule out bipolar mood disorder with psychosis. 4. Rule out schizophrenia or trauma. AXIS II Defer. AXIS III None. AXIS IV Unknown. AXIS V Current Global Assessment of Functioning equal to 35. Medications Treatments Patient is being provided with a high degree of safety through the structure and active adult engagement. We will focus on developing improved coping skills and identifying stressors that may have led to current episode. We will attempt to: Integrate into therapeutic groups, milieu and individual therapy. Maintain in a closely monitored and structured unit Provide low-stimulation environment Obtain collateral data to assist in treatment planning Assess degree of lability of affect and impulse control Complete safety plan Decrease frequency of relapse and need for re-hospitalization Establish a consistent sleep pattern Medication effective in stabilization of mood and/or thought process Reduce the risk of imminent harm to self and/or others by providing a safe environment Tolerates medication without side effects Patient will be on the following psychiatric medications: Risperdal 1 mg twice a day Klonopin 0.5 mg twice a day Education: Educate patient about recreational drug use as an etiology Educate about metabolic etiologies related to obesity Address patient's legal status Patient is on a 72 hour involuntary treatment hold. Patient will be given the opportunity to talk to her change management consultant and the clock maker Eleno Molina MD Oct 29, 2016 13:45
--- NOTE | 2016-10-29 14:06 | NUR ---
day shift nursing note-Socialization/Sleep/SI/Psychosis S/O-Pt. was lethargic in the morning eating breakfast after all her peers have eaten. She has a blunted flat affect with latent speech. She is cooperative and polite with staff. Her goal was to read from the AA book on the unit in her room. She denies SI/HI. She states her mood is good today. She wanted to catch up on some sleep today. A-Psychosis. Limited insight. Indecisive. P-Monitor for safety per protocol. Assess efficacy of meds to decrease target symptoms. Encourage pt. to engage with staff and peers.
[2016-10-29] MEDS: LORazepam 1 mg Tablet PO PRN (14:49)
--- NOTE | 2016-10-29 17:57 | NUR ---
Technical Manager./ c.m. S.:"I'm good. I had a really good visit with my friends." O.: met with pt. after dinner. She slept "good" last night. She denied SI/HI, denied AH/VH or paranoid/delusional thoughts. She denied depression or anxiety. She said that she felt "a little shy but not so much" and she rated it at 3/10. She was happy to see her friends who were here for some time. She also was glad that she could talk again. She said "everybody has moments when it is hard to find words but it doesn't last long. I had a similar moment too, but now I'm good." She made a ball from paper and washcloth and was kicking it in a yancey. "It makes me feel good." She was in and out of her room during a day but didn't socialize with peers. A.: pt. is isolative, cooperative, pleasant, has a bright affect and a poor insight. P.: monitor behavior, engage pt. in the group activities, monitor meds intake; follow care plan.
--- NOTE | 2016-10-29 20:18 | NUR ---
[facility] Note 10/29/16 D-Patient attended all structured groups and activities. She ate 50-75% of meals. Patient attended basic hygiene and appears moderately groomed. A- Patient appeared despondent, teary, and blunted this shift. She had periods, predominantly when her boyfriend was here, that she was bright and engaged. She was able to speak more easily at these times but overall had difficulty speaking full sentences. She did say that she was worried that she was putting too much pressure on those around her, specifically her boyfriend and NA sponsor. She denies any suicidal or homicidal ideation but is unable to think in a forward manner. P- Continue current treatment plan.
--- NOTE | 2016-10-29 21:36 | NUR ---
nursing note evenings S)" I just can't make any decisions right now, I don't know what to do" O) before visiting time pt was experiencing high anxiety, worried about having to make future plans and maybe she shouldn't see her visitors that where coming, Ativan for anxiety given, along with nicotine replacement " I just want to go out and smoke" calmed down and was able to visit, played "soccer" with handmade soft ball , stated anxiety decreased to a 5/10, stated met goal today of "to keep smiling" rated mood 7/10, cooperative, pleasant, continued delayed responses to questions A) anxious, worried about future, cooperative P) monitor medications effectiveness and encourage treatment participation
--- NOTE | 2016-10-30 05:35 | NUR ---
Nursing Note Data Architect 11pm to 7am Pt went to bed at 2230 and slept uninterrupted through the night. No prn required. Monitored pt q 15 min for safety, locatin and accountability
[2016-10-30] MEDS: risperiDONE 1 mg Tablet PO SCH ×2 (08:05→19:57)
[2016-10-30 09:00] VITALS: BP 123/79; PULSE 110; RESP 16
[2016-10-30] MEDS: LORazepam 1 mg Tablet PO PRN (10:19)
--- NOTE | 2016-10-30 13:06 | NUR ---
Nursing Note [id number] Behavior S/O: Pt ate 75% of meals. Took am medications without problems. Pt able to have a conversation when approached. When asked if she lived nearby, she replied, "I'm learning to answer that question." Pt lives on [address]. Pt has minimal eye contact. Pt became anxious this morning after another pt displayed frustration on the unit. Pt became tearful & stated, "I want to get go outside....I need to get out of here....I can only talk to one person at a time." Pt took Ativan 1 mg with hesitation at 1020 with good effect. Pt resting in bed currently. VS stable. A: Pt paranoid with sx of anxiety. P: Provide supportive environment. Monitor medications & effects.
--- NOTE | 2016-10-30 13:15 | PCM.PNPSY ---
Subjective Date of Service Oct 30, 2016 Subjective I spent 20 minutes both reviewing treatment plan and providing supportive/ educational psychotherapy. Jonna was less mute and her eye contact was less bizarre again today. Her thoughts are latent and she is unable to respond to direct questions without a significant pause. She was less distressed and was no longer emotional labile. Staff reports that she has been attempting to participate in one-to-one unit and group activities. She slept 7 hours and denies auditory hallucinations. There were no delusional themes to her thought content.. She denies medication side effects. Patient was not able to identify her medications for what they were used to treat. Current Medications Current Medications Nicotine 1 patch DAILY TOPICAL Last administered on 10/30/16 08:05; Admin Dose 1 PATCH; Start 10/30/16 at 08:30 Nicotine Polacrilex 2 mg Q6H PRN BUCCAL Last administered on 10/30/16 12:36; Admin Dose 2 MG; Start 10/29/16 at 15:45 Mental Status Exam Appearance: Neat/well groomed Attitude: Pleasant, Cooperative Behavior: Distractible, Other (stairs with wide eyes as if "a deer in the headlights") Affect: Flat Mood: Fearful Thought Process/Associations: Blocking, Other (poverty of thought) Speech Production: Muter Speech Rate: Lags/Latency Thought Content: Negativistic, Perseveration Delusions: Paranoid (Endorses) Consciousness: Hyper-vigilant Orientation: Unable to assess Memory: Untestable Estimate Intellectual Function: Unable to assess Attention/Concentration & Cogn: Impaired Insight: Limited Judgement: Limited Result Diagram: 10/25/16 0957 10/25/16 0957 Mental Health Plan The patient is a 21-year-old, white female, who reportedly has had three different inpatient hospitalizations over the past two years for psychosis and catatonia. She currently is in an extreme state of fear with high heart rate, anxiety and catatonic behaviors. She is a poor historian and much of my information was gleaned from reviewing charts from [facility] and the ED record. She has reportedly had trials of Depakote, Invega, Navane and Clozaril. There were poor responses mentioned but no details given to the trials of Invega and Navane. Client is reportedly trying to pursue sobriety and has a history of methamphetamine, heroin and alcohol abuse. There are reports that she has been sober for six months and her urine tox is clean. She has a supportive boyfriend and had been planning to go to a job interview today before having an exacerbation of symptoms. Over the past 72 hours she has shown gradual and steady improvement in thought organization and Mood stability. She remains markedly impaired but appears to be responding to treatment and recovering. [place] AXIS I 1. Psychosis, unspecified, rule out major depressive disorder with psychosis. 2. Rule out substance-induced psychosis. 3. Rule out bipolar mood disorder with psychosis. 4. Rule out schizophrenia or trauma. AXIS II Defer. AXIS III None. AXIS IV Unknown. AXIS V Current Global Assessment of Functioning equal to 35. Medications Treatments Patient is being provided with a high degree of safety through the structure and active adult engagement. We will focus on developing improved coping skills and identifying stressors that may have led to current episode. We will attempt to: Integrate into therapeutic groups, milieu and individual therapy. Maintain in a closely monitored and structured unit Provide low-stimulation environment Obtain collateral data to assist in treatment planning Assess degree of lability of affect and impulse control Complete safety plan Decrease frequency of relapse and need for re-hospitalization Establish a consistent sleep pattern Medication effective in stabilization of mood and/or thought process Reduce the risk of imminent harm to self and/or others by providing a safe environment Tolerates medication without side effects Patient will be on the following psychiatric medications: Risperdal 1 mg twice a day Klonopin 0.5 mg twice a day Education: Educate patient about recreational drug use as an etiology Educate about metabolic etiologies related to obesity Address patient's legal status Patient is on a 72 hour involuntary treatment hold. Patient will be given the opportunity to talk to her store hand Monday and the client application support specialist Monday Recommend a 14 day MR be pursued Eleno Molina MD Oct 30, 2016 13:15
--- NOTE | 2016-10-30 15:45 | NUR ---
Patient Support Specialist./ c.m. S.:"I'm good." O.: met with pt. in a private room. She slept "good" last night. She denied SI/HI, denied AH/VH or paranoid/delusional thoughts, denied depression or anxiety. She described her mood as "good". She was hoping to see her b.f. today. She asked about discharge home. Grocery Caddy explained to pt. her legal hold and a reason for being here over the weekend. She was in and out of her room spending some time in a group room but not talking to peers. Later pt. had a visit from her AA friend whom she called earlier. A.: pt. is cooperative, isolative, quiet and looks detached. She seems internally preoccupied and her facial expression is incongruent. P.: monitor behavior, monitor for safety, follow care plan.
--- NOTE | 2016-10-30 17:03 | NUR ---
Observations [id number] Pt was asleep upon start of shift. Pt slept in and ate breakfast later in the morning. Pt appears to have a hard time processing thoughts and communication, and is fixated on discharge. Pt asked for help throughout the day regarding paperwork and working on triggers. When approached regarding paperwork, pt appeared to have a hard time understanding, would grow frustrated and return to room. She asked for help "making conversation....I haven't talked in a few days...I don't know what to say." Pt's boyfriend visited in the evening. Pt did attend a few groups throughout the day. Pt attended all meals, eating 100%. Pt was observed every 15 minutes of shift as directed.
--- NOTE | 2016-10-31 05:23 | NUR ---
Nursing note: television cable installer/sleep Patient appears to be sleeping on safety checks during the night. offers no complaints.
[2016-10-31] MEDS: risperiDONE 1 mg Tablet PO SCH ×3 (08:26→21:18)
--- NOTE | 2016-10-31 13:06 | NUR ---
Nursing Note [id number] Mental Status S/O: Pt ate 75% of breakfast & lunch. VS stable. Attempted to talk with pt about what she likes to do. Pt showed me artwork she has done while here. When conversation was finished, pt appeared confused & asked, "What do you want me to do?" Pt asked for markers from [facility] when markers were already available. When other markers given to pt, she d/n use them, but walked away. Pt pleasant & cooperative. Pt has difficulty with understanding conversations. Pt has latent speech. A: Pt appears to have difficulty making decisions. P: Provide supportive environment. Monitor medications & effects.
--- NOTE | 2016-10-31 16:34 | PROG NOTE ---
[address] [address] PROGRESS NOTE PATIENT: BEVERLY BOJORQUEZ : 1995 MR#: [id number] ADMIT: 10/25/2016 JOB ID: [id number] DATE: 10/31/2016 CHIEF COMPLAINT: "I would like to go back to [facility], I just don't want to stay here a very long time." This is per patient report. HISTORY OF PRESENT ILLNESS: As stated above, the patient did identify with myself, the case management coordinator, and medical student, that she would like to continue services with [facility]. There was noted paucity of response throughout the course of the conversation and she appeared to be internally preoccupied. Over the weekend hours, per case management coordinator's report and nursing staff, the patient did show significant improvement with engagement in activities and was seen playing ball in the hallway. This morning, she appears to be somewhat paranoid with fixed eye gaze and paucity of response. She denied any evidence of intrusive thoughts. She denied any difficulties with hallucinations or delusions. She reportedly has been medication compliant of current, and I have discussed the possibility of transitioning to LR 90 with conditional release after five days. The patient became somewhat confused despite multiple attempts of discussion with myself and the case management coordinator. Recommendations were to discuss further with her comic illustrator with possible consideration of adaptation of MR 14, which would be filed tomorrow. OBJECTIVE: ON mental status exam, the patient as noted above maintained intermittent eye contact. She had fixed gaze throughout. Her speech was latent and showed evidence of paucity throughout. She was cooperative, polite ,casually dressed in her own attire. She was age appropriate in her appearance but appeared to be somewhat cognitively impaired. Her mood was neutral. Her affect was blunted. Her thought process shows no evidence of racing thoughts. She does appear to be somewhat loose and disorganized throughout. Her thought content, she denied any evidence of current suicidal or homicidal ideation. She denies any current hallucinations or delusions. However, there is a presentation of paranoia. She was alert, oriented to time and place. Her attention was limited. Her concentration poor. Insight and judgment are poor. PHYSICAL EXAMINATION: Vital signs: Current: Temperature is 36.4, pulse 110, respirations 16, BP 123/79. MEDICATION REVIEW: Includes: 1. Risperdal 1 mg b.i.d. 2. Klonopin 0.5 mg b.i.d. ASSESSMENT: [place] I. 1. Psychotic disorder, not otherwise specified. 2. Rule out major depressive disorder, recurrent, severe, with psychotic features. 3. Rule out substance-induced psychosis. [place] II. Deferred. [place] III. None. [place] IV. Stressors are noted for substance use issues with noted sobriety over the past six months and negative urine toxicity screening consistently. [place] V. Global Assessment of Functioning current 35. PLAN: 1. Recommendations for continuation of all medications noted. 2. Consideration of advancement into LR 90 plus 5 with consideration of options of injectable Invega Sustenna based on the patient's considerable improvement with dose administration of Risperdal per staff report. 3. Recommendations for continuation of therapeutic complement with support and redirection as noted.
--- NOTE | 2016-10-31 17:47 | NUR ---
Observations [id number] Pt was asleep upon start of shift. She appeared to be a little more receptive today then observed in the previous day. Pt continues to ask for help with communication, and today asked to have help in regards to dealing with "." Pt stated "I'm not sucicidal myself...I've just had lots of others and I need help dealing with it." Pt stated she did not want paperwork or worksheets as "I have so many forms....so many forms." Pt did spend time with peers, but was not overly social. She slept much of the afternoon. Pt's boyfriend visited in the evening. She appeared to be noticeably emotional, crying upon his arrival. Pt was observed every 15 minutes of shift as directed.
--- NOTE | 2016-10-31 17:49 | NUR ---
Clay Puddler./ c.m. S.:"I'm good... I'm worried about being tired..." O.: met with pt., doctor and med. student in pt.'s room. She was in bed resting but she agreed to sit and talk to the doctor and staff. She "didn't get a good night sleep. I had a nightmare." She denied SI/HI, denied AH/VH or paranoid/delusional thoughts. She agreed to go back to [facility] after discharge from here. She said that being enrolled into IOP at [facility] was helpful in the past. She got "overwhelmed with all information" very quickly and her responses got slower and slower. She admitted having "too many thoughts" in her mind. She was in and out of her room walking in a yancey sometimes. A.: pt. is cooperative, quiet, isolative, looks internally preoccupied, has difficulty following a conversation. P.: monitor behavior, court tomorrow; follow care plan.
--- NOTE | 2016-10-31 22:02 | NUR ---
Nursing Note Maria Del Rosario Shift Pt spent shift visiting with boyfriend. Upon assessment pt appears confused, unable to make decisions, with minimal speech and latent responses. Pt denied anxiety, SI and hallucinations with one word responses and although appears wanting to say more in either unable to or unwilling. Pt still has the intense, blank stare with minimal responses. Pt decided to take meds for court in am and has been cooperative with staff. Q15 min safety checks done per protocol, [facility] sleep, safety, behavior
--- NOTE | 2016-11-01 02:33 | NUR ---
Observations 1900 to 0700 Pt's Boyfriend visited again last night. Pt seems anxious and confused. Pt affect is flat. Pt stayed to herself in her room for the most part. pt came out a few times and had some request for her nurse. Pt first appeared asleep at 22:45 and was observed every 15 minutes through the night as directed.
--- NOTE | 2016-11-01 05:17 | NUR ---
Nursing notes: assistant shift supervisor/ sleep Patient appears to be sleeping on safety checks during the night. No complaints voiced.
[2016-11-01] MEDS: risperiDONE 1 mg Tablet PO SCH ×2 (10:20→20:56)
[2016-11-01] MEDS ORDERED: Paliperidone Palmitate 234 mg/1.5 mL Inj (NC) IM SCH (11:45)
[2016-11-01 12:21] VITALS: BP 100/63; PULSE 98; RESP 15
--- NOTE | 2016-11-01 12:37 | PROG NOTE ---
[address] [address] PROGRESS NOTE PATIENT: BEVERLY BOJORQUEZ : 1995 MR#: [id number] ADMIT: 10/25/2016 JOB ID: [id number] DATE: 11/01/2016 CHIEF COMPLAINT: "I was hoping to get out here today." "I will agree to take the shot." HISTORY OF PRESENT ILLNESS: As stated above, the patient did meet with myself and the medical student and reviewed her current agreement of LR 90+7. She continued to have difficulties with acceptance that she would remain in the hospital until next Monday. She did agreed to initiate Invega Sustenna based on her previous history of noncompliance with outpatient care and limited followup. She indicated that she feels that her thoughts are better in control today. She denies any evidence of hallucinations, delusions, but appears to be responding to internal stimulus. MENTAL STATUS EXAMINATION: General appearance: She was cooperative. She was dressed in scrubs. She made intermittent eye contact. She does have a continuation of latent responses throughout. Her mood was alexithymic. Her affect was blunted. Her thought process shows evidence of loose and disorganized thinking. She had great difficulties with understanding that she would remain in the hospital until Monday. She was mildly paranoid. Her insight and judgment are deemed poor. PHYSICAL EXAMINATION: Vital signs are current: Temperature is 36.4, pulse 110, respirations 16, BP 123/79. MEDICATION REVIEW: Includes Risperdal 1 mg b.i.d., Klonopin 0.5 mg b.i.d. ASSESSMENT: [place]il[place] I: 1. Psychotic disorder, not otherwise specified. 2. Rule out substance-induced psychosis. 3. Methamphetamine use disorder in a controlled environment. 4. Opiate use disorder, in a controlled environment. [place]il[place] II: Deferred. [place]il[place] III: None. [place]ilax IV: Stressors are noted for chronic substance use. [place] V: Global Assessment of Functioning of current 35. PLAN: 1. Recommendations for continuation of LR 90+7 with a plan of discharge on Monday. 2. Initiation of Invega Sustenna 234 mg to be given today with followup injection of 156 on Monday. 3. Recommendations for continuation of Risperdal 1 mg b.i.d. for now with intent to discontinue with her 3rd injection of Risperdal.
--- NOTE | 2016-11-01 14:11 | NUR ---
Nursing Note [id number] Behavior, Medications S/O: Pt has good appetite. VS stable. Pt out of room & interacting with other patients. She appeared relaxed until this afternoon after another patient told her that meth was the "devil's drug." Pt then became tearful & stated that she doesn't use meth anymore. Pt then attempted to play ping-pong with another patient, but stopped after a few minutes & went to her room. Pt requested shower then went in & only used the deodorant wipe. Out of room briefly recently, but returns to her room quickly. Pt received Invega Sustenna injection without problems in left deltoid. A: Pt appears paranoid & anxious. She has become disorganized since this happened. P: Provide supportive environment. Monitor medications & effects.
--- NOTE | 2016-11-01 18:00 | NUR ---
Observations 8265-3783 Pt was asleep upon start of shift. She continues to have difficulty with communication, but thought process and speech appeared to have improved since yesterday. Pt attended Community Meeting and did spend time in group and the common area. She attempted to work on a puzzle but struggles to focus for long periods of time. Pt read in the dining area and is polite when interacted with. Affect remains flat, guarded and confused. Pt did become emotional in the afternoon after another patient interaction. She attended all meals, eating 100%. Pt's boyfriend came to visit during visiting hours, when her mood improved. She was observed every 15 minutes of shift as directed.
--- NOTE | 2016-11-02 01:20 | NUR ---
Observations 1900 to 0700 Pt's Boyfriend visited again last night. Pt seems anxious and confused. Pt affect is flat. Pt stayed to herself in her room for the most part. Pt came out a few times and had some request for her nurse. Pt did take a shower before going to bed for the night Pt first appeared asleep at 23:00 and was observed every 15 minutes through the night as directed.
--- NOTE | 2016-11-02 05:30 | NUR ---
Sleep 11p-7a Pt has remained asleep since 2300 with no noted distress or awakening per protocol checks. Total sleep 6+ hours.
[2016-11-02] MEDS: risperiDONE 1 mg Tablet PO SCH ×2 (08:50→20:01)
[2016-11-02 10:30] VITALS: BP 110/71; PULSE 115
--- NOTE | 2016-11-02 11:46 | PROG NOTE ---
[address] [address] PROGRESS NOTE PATIENT: BEVERLY BOJORQUEZ : 1995 MR#: [id number] ADMIT: 10/25/2016 JOB ID: [id number] DATE: 11/02/2016 CHIEF COMPLAINT: "Do you think that I would be able to leave early." This per patient report. HISTORY OF PRESENT ILLNESS: As stated above, the patient continued to persist about the possibility of discharge. I have informed her that per court order she is scheduled for release on Monday. She reportedly was cooperative with the administration of medications including Invega Sustenna yesterday at 235 mg. She remains on Risperdal 1 mg b.i.d. and Ativan 1 mg q.4 hours p.r.n. She also is continued on Klonopin 0.5 mg b.i.d., and I have suggested a discontinuation based on her previous history of significant chronic substance abuse issues. OBJECTIVE: On mental status examination, the patient was much more interactive. She maintained good eye contact. She denied any evidence of acute distress. She was dressed in scrubs after a shower. Her speech was of normal tone, frequency and volume. Her mood was neutral. Her affect was much more congruent and animated. Her thought process showed no evidence of racing thoughts, flight of ideas, loose or disconnected thinking. Thought content: She denied any evidence of current suicidal, homicidal ideation. No evidence of active hallucinations or delusions. She does continued be somewhat guarded and questionable paranoia. She has some paucity of thought but significantly improved over the past two days. She was alert, oriented to time and place. Her attention and concentration are improved. Insight and judgment are fair. PHYSICAL EXAMINATION: Vital signs of current. Temperature is 36.6, pulse 115, respirations unlisted, BP 110/71. MEDICATION REVIEW: Includes: 1. Invega Sustenna 234 mg, first dose injection yesterday. 2. Klonopin 0.5 mg b.i.d. 3. Risperdal 1 mg b.i.d. 4. Ativan 1 mg q.4 hours p.r.n. ASSESSMENT: AXIS I 1. Psychoses, not otherwise specified. 2. 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 3. Methamphetamine use disorder in a controlled environment. 4. Opiate use disorder in a controlled environment. AXIS II Deferred. AXIS III None. AXIS IV Stressors are noted for chronic substance abuse. AXIS V Global assessment of functioning of current 40. PLAN: 1. Recommendations for discontinuation of Klonopin based on the patient's long-term history of polysubstance use and probable addiction. 2. Recommendations for continuation of court order with a plan of discharge on Monday. 3. Recommendations for follow up injection of Invega Sustenna 156 mg on Monday.
--- NOTE | 2016-11-02 14:19 | NUR ---
Nursing Note [id number] Behavior S/O: Pt ate 100% of breakfast, but refused lunch. VS stable. Pt attended Community Meeting this morning. Pt con't to have latent speech & responses, but this is slowly improving. Affect is slightly improved since yesterday. Pt has been staying in room most of the day. She comes out for brief times during the day. Little interaction with peers noted. Pleasant & compliant with cares & medications. A: Pt's cognitive function is slowly improving, but she still has problems with thought process. P: Provide supportive environment. Monitor medications & effects.
--- NOTE | 2016-11-02 16:24 | NUR ---
Observations 0700 to 1900 Pt maintained behavioral control throughout the shift. Pt remains flat, guarded, and still has trouble communicating, though seems more decisive and open than previous shifts. Pt attended community activities throughout the day and set goal to make friends with females. Pt self rated mood at 9/10. Pt seemed to have good phone conversation with boyfriend and other family during the day. Pt is cooperative with staff but seems slightly wary of male staff. Pt ate 100% of breakfast and lunch and was observed every 15 minutes as ordered.
--- NOTE | 2016-11-03 05:33 | NUR ---
nursing, nights, 11-7 s- i don't want that. i want melatonin instead. can i have a nicotine lozenge ? thank you. o- up at start of shift. declined offered ambien. insistent of need for melatonin which she received 3 mg at 0020. has appeared to sleep after 0100. assessed q 15 minutes. a- anxious about difficulty sleeping, medication helpful, no apparent distress. p- monitor behavior/emotional state, quality, times and amount of sleep, use and effect of medication. sol
[2016-11-03] MEDS: risperiDONE 1 mg Tablet PO SCH ×2 (08:26→20:34)
[2016-11-03 08:50] VITALS: BP 81/46; PULSE 70; RESP 15
--- NOTE | 2016-11-03 13:13 | PROG NOTE ---
[address] [address] PROGRESS NOTE PATIENT: BEVERLY BOJORQUEZ : 1995 MR#: [id number] ADMIT: 10/25/2016 JOB ID: [id number] DATE: 11/03/2016 CHIEF COMPLAINT: "I would like to leave on Monday after I get my shot." This per patient report. HISTORY OF PRESENT ILLNESS: As stated above, the patient did identify that she had conversations with her boyfriend yesterday and ALEJANDRO, the trimming caser, also followed up with conversation. She reports that she is aware that she will receive her second dose of Invega Sustenna on Monday, the , and I have discussed that I would be confident to discharge her at that time. She appeared to be enthusiastic about this and indicated that she will followup with the 90 status of interventions provided by [facility]. OBJECTIVE: On mental status examination, she was somewhat sedate, maintained no significant eye contact during the course of conversation but responded appropriately. Her speech was soft and limited. Her mood was neutral. Affect was congruent. Thought process showed no evidence of racing thoughts, flight of ideas, loose or disconnected thinking. Thought content: She denied any evidence of current suicidal or homicidal ideation. No evidence of active hallucinations or delusions. She is somewhat guarded and remains status. She had paucity of response but appeared to be tracking and following conversations appropriately and she was alert and oriented to time and place. Attention and concentration intact. Insight and judgment are fair. PHYSICAL EXAM: Vital signs are current. Temperature is 36.5, pulse 70, respirations 15, BP 81/46. MEDICATION REVIEW: Includes: 1. Melatonin 3 mg q.h.s. 2. Invega Sustenna 234 mg on the . Next injection scheduled on the of 156. 3. Risperdal 1 mg b.i.d. 4. Ativan 1 mg q.4 hours p.r.n., last dose given on October 30. ASSESSMENT: AXIS I 1. Psychotic disorder, not otherwise specified. 2. Polysubstance use disorder, methamphetamines and opiates. 3. Probable substance induced disorder, induced psychoses along with mood disorder. AXIS II Cluster B personality features. AXIS III None. AXIS IV Stressors are noted for chronic substance abuse, chronic mental health issues. AXIS V Global assessment of functioning of current 35. PLAN: 1. Recommendations for follow up injection of Invega Sustenna 156 mg on the with scheduled release. 2. Continuation of LR 90 as noted. 3. Discontinuation of Ativan based on the patient's significant long-term history of substance use, with suggestion of utilization of Vistaril as primary anxiolytic.
--- NOTE | 2016-11-03 15:52 | NUR ---
nursing note day shift S)"can I take a shower? and clean clothes? " O) pt continues with delayed responses, states anxiety 5/10 with no depression, denies VH/AH, up for meals, dressed in scrubs and groomed, in room most of day except for meals, denies any side effects A) slightly anxious, isolates, cooperative, agreement with plan of Invega shot on Monday P) monitor medication effectiveness and encourage participation in treatment
--- NOTE | 2016-11-03 18:11 | NUR ---
Observations [id number] Pt was asleep upon start of shift. Pt continues to have difficulty with communication. She spent much of her day in bed, sleeping. She did approach this flex o writer operator and ask to retrieve a number from her phone. She stated at the end of the day "I was really hoping to leave today." Pt continues to have delayed responses. She did participate in both Community Meeting and group, working on art. Her boyfriend came to visit in the evening. She attended all meals, eating 100%. Pt was observed every 15 minutes of shift as directed.
--- NOTE | 2016-11-04 05:24 | NUR ---
nursing, nights, 11-7 s/o- has appeared to sleep after 2200 during q 15 minute assessments. a- no apparent distress. p- monitor behavior/emotional state, quality, times and amount of sleep, use and effect of medication. sol
--- NOTE | 2016-11-04 06:20 | NUR ---
OBSERVATIONS 1900 TO 0700 Pt presented with flat affect. Pt was relatively pleasant and cooperative aside from a brief issue concerning PDA and her visiting boyfriend. Pt was also visited by her sponsor. Pt participated in evening wrap-up group, although she chose not to elaborate, she did rate her day and mood 5/10. Pt was otherwise isolative spending the remainder of the evening in her room. Pt was recorded asleep 2200 and slept through the night uninterrupted. Maintained Q15 safety checks as directed.
[2016-11-04] MEDS: risperiDONE 1 mg Tablet PO SCH ×2 (08:10→20:03)
[2016-11-04 08:50] VITALS: BP 98/67; PULSE 100; RESP 16
--- NOTE | 2016-11-04 11:55 | NUR ---
Nursing Day Shift- S- "Sometimes sort of." (Response to being asked if she sleeps till late in the morning at home.) "Sometimes sort of." (Response to being asked if she goes to bed late.) O- Pt. appeared asleep at the start of the day shift. She was woken for her morning medication, took them with hesitation, then responded with: "I just woke up." when asked how her mood has been the past few days. She declined to get out of bed for breakfast, and stayed in bed until 1115, for a total of 13 hours sleep. Pt. was asked again about mood and sleep habits, and gave vague, slightly sarcastic responses. A- Excess sleep. Speech delay and what appears to be confusion. Pt. does not appear psychotic. P- Cont. BHTP. Encourage participation as tolerated.
--- NOTE | 2016-11-04 13:15 | PROG NOTE ---
[address] [address] PROGRESS NOTE PATIENT: BEVERLY BOJORQUEZ : 1995 MR#: [id number] ADMIT: 10/25/2016 JOB ID: [id number] DATE: 11/04/2016 CHIEF COMPLAINT: "I'm still kind of sleepy, can we talk later." This per patient report. HISTORY OF PRESENT ILLNESS: As stated above, the patient declined interview with myself, indicating that she feels quite sedated. She reportedly was seen yesterday afternoon walking on the unit and was much more appropriate, interactive and continues to persist with a desire to discharge. I have discussed emphatically with the patient that her next dose of Invega Sustenna will be on Monday with planned discharge to the care of her current boyfriend at that time. OBJECTIVE: On mental status examination, the patient refused interactions with myself this morning. She is quite sedate. Her speech is slow to respond with noted paucity. Her mood is neutral. Affect is blunted. Thought process showed no evidence of racing thoughts, loose or disconnected thinking. Thought content: She denied any evidence of current distress. No evidence of suicidal or homicidal ideation. No evidence of paranoia. No responses in reference to hallucinations or delusions. She was alert, oriented to time and place. Her attention and concentration are poor. Insight and judgment are poor. PHYSICAL EXAM: Vital signs of current are unlisted. CURRENT MEDICATIONS: Include: 1. Invega Sustenna 234 mg given on November 01, next dose injection on November 06Monday. 2. Risperdal 1 mg b.i.d. 3. Vistaril p.r.n. 50 mg q.4 hours. ASSESSMENT: AXIS I 1. Psychotic disorder, not otherwise specified. 2. Polysubstance use disorder with methamphetamines, THC and opiates. 3. 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 AXIS II Deferred. AXIS III None. AXIS IV Stressors are noted for significant substance abuse, chronic mental health issues. AXIS V Global assessment of functioning of current 30. PLANS: 1. Recommendations for continuation of all medications noted. 2. Follow up injection of Invega Sustenna 156 mg on Monday morning with scheduled discharge thereafter and continuation of LR 90, as noted.
--- NOTE | 2016-11-04 17:52 | NUR ---
[facility] Day Shift Pt maintained behavioral control throughout the shift. Pt affect appears flat, somewhat brighter when engaged with staff and peers. Pt spends most of the shift resting in her room and participating lightly in unit activities. Pt remains soft-spoken, but no longer appears latent. Pt attended community meeting in the AM and participated lightly in afternoon group activity. Pt attended all meals and ate approx 70% of all meals.
--- NOTE | 2016-11-04 18:11 | NUR ---
Radio Time Buyer/Counselor: S/O: Patient slept 8+ hours last night as per staff. No evidence of S/I and H/I. No response to auditory and visual hallucinations. A: Patient is cooperative, fearful, blunted affect, poor insight, poor judgment. P: Follow your care plan, coordinate out-patient providers.
--- NOTE | 2016-11-04 22:33 | NUR ---
NURSING NOTE [id number] Mood: "bored" Affect: flat, blunted, annoyed Behavior: mostly keeping to her room this shift, multiple phone calls w/her boyfriend, asked this technical writer and editor if she could leave today b/c she stated; "being here is hurting my recovery. I'm so bored." When asked if she wanted to attend recreation group to pass the time she became irritated and said "I participated already!" She called the mental health access line to begin setting up her outpatient supports and reported back that they told her they will call her on Monday. Her boyfriend visited. Med compliant. Thought processes: denies SI/HI/AH/VH. She continues to have delayed responses, particularly when asked a direct question.
--- NOTE | 2016-11-05 05:07 | NUR ---
Nursing Note Noc Pt asleep upon arrival to unit. Noted sleep time 2200 with 7 plus HRs sleep. No PRN's given on shift, Q15 min safety checks done per protocol, [facility] sleep, safety, behavior
[2016-11-05] MEDS: risperiDONE 1 mg Tablet PO SCH ×2 (08:11→21:27)
[2016-11-05 10:05] VITALS: BP 96/62; PULSE 106; RESP 16
--- NOTE | 2016-11-05 13:58 | PROG NOTE ---
[address] [address] PROGRESS NOTE PATIENT: BEVERLY BOJORQUEZ : 1995 MR#: [id number] ADMIT: 10/25/2016 JOB ID: [id number] DATE: 11/05/2016 CHIEF COMPLAINT: "I really miss my boyfriend." This per patient report. HISTORY OF PRESENT ILLNESS: As stated above, the patient openly identified with tearfulness that she is struggling with being away from her boyfriend. She indicated that he has only been able to visit on a minimal amount and I have encouraged through staff interaction that he can make two times daily visitation in order to encourage the patient to continue to cooperate with programming. I do feel that this is fundamentally a support system for the patient and should be highly encouraged. OBJECTIVE: On mental status examination, she maintained good eye contact throughout. She was tearful but appropriate. Her speech was of normal tone, frequency and volume. Her mood was depressed. Her affect was tearful. Her thought process showed no evidence of racing thoughts, flight of ideas, loose or disconnected thinking. Thought content: She denied any evidence of current suicidal, homicidal ideation. No evidence of active hallucinations, delusions. She was alert, oriented to time and place. Her attention and concentration are intact. Insight and judgment are fair. PHYSICAL EXAM: Vital signs of current. Temperature is 36.6, pulse 106, respirations 16, BP 96/62. MEDICATION REVIEW: Includes: 1. Melatonin 5 mg q.h.s. 2. Vistaril 50 mg t.i.d. p.r.n. 3. Invega Sustenna will be given 156 mg on Monday. 4. Risperdal 1 mg b.i.d. ASSESSMENT: AXIS I 1. Psychotic disorder, not otherwise specified. 2. Substance induced psychoses, resolving. 3. Substance induced mood disorder. AXIS II Deferred. AXIS III None. AXIS IV Stressors are noted for chronic substance abuse issues. AXIS V Global assessment of functioning of current 35. PLANS: 1. Recommendations for follow up Invega Sustenna injection 156 mg on Monday with scheduled discharge to satisfy a level LR 90 plus 7. 2. Continuation of all other medications noted. 3. Staff have been alerted that I have authorized for boyfriend to receive open visitation twice daily to encourage participation in the patient's programming.
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
--- NOTE | 2016-11-05 17:08 | NUR ---
Litharge Supervisor./ c.m. S.:"Ok..." O.: met with pt. in her room. She slept "ok" last night. She denied SI/HI. She described her mood as "ok". She wanted to go home today or tomorrow. She agreed to stay until Monday or Monday to get her injection. She was in and out of her room but mostly keeping to herself. She was walking in a yancey from time to time with a flat detached facial expression. A.: pt. is isolative, cooperative, quiet, looks internally preoccupied. She has a flat affect and a minimal response. P.: monitor behavior, work on Safety plan, continue engaging pt. in the unit activities; follow care plan.
--- NOTE | 2016-11-06 03:47 | NUR ---
Observations 1900 to 0700 Pt affect is flat but much improved. Pt stayed to herself in her room for the most part. Pt came out a few times and had some request for her nurse. Pt did take a shower before going to bed for the night. Pt first appeared asleep at 23:00 and was observed every 15 minutes through the night as directed.
--- NOTE | 2016-11-06 06:41 | NUR ---
Nursing Noc Pt appears to be improving each day. Boyfriend into visit with good experience. First Invega shot scheduled for Monday. Possible discharge home after that. Continuing to monitor mood behavior, and emotional state. CP
[2016-11-06] MEDS: risperiDONE 1 mg Tablet PO SCH ×2 (08:30→21:21)
[2016-11-06 10:55] VITALS: BP 100/67; PULSE 115; RESP 16
--- NOTE | 2016-11-06 14:58 | NUR ---
Reservations Agent./ c.m. S.:"I'm ok... good... When will I start feeling balanced? When medications will start working?" O.: met with pt. in her room. She was in bed resting but she agreed to talk to the conventional underwriter. She "slept ok" last night. She denied SI/HI, denied AH. She said that she had VH in a way of "different lights that are sparkling if I close my eyes." She denied depression or anxiety. She denied paranoid/delusional thoughts. She said that her "mind is going a little bit slower than usually." She was wondering about her medications and how long it would take for her to feel more stable. She couldn't explain what she meant by saying "stable".Supervisor Beehive Kiln encouraged pt. to talk about her concerns with the doctor tomorrow. She was in and out of her room today but mostly she spent time by herself. She was waiting for her b.f. visit after lunch. A.: pt. is cooperative, isolative, quiet, looks internally preoccupied. She has a flat affect and a slow response. P.: monitor behavior, encourage pt. to participate in the unit activities, work on Safety plan and follow up; follow care plan.
--- NOTE | 2016-11-06 16:22 | NUR ---
nursing note S)"what would be a good answer to that question?" O)pt with delayed responses and flat affect, stated staff asks her about visit with her boyfriend and seemed confused at how she should answer, explained to pt about the special circumstances with her visits that the dr has allowed and staffs interest in that we set up a room way from other patients, pt had questions also about discharge and what is needed to be done for appointments, working on safety plan, reports anxiety 08/23 with no depression, had visit with sponsor that she said went well A)affect flat, cooperative, no physical complaints P) monitor medication effectiveness, encourage participation in treatment
--- NOTE | 2016-11-06 16:38 | NUR ---
Observations 0900 to 1900 Pt affect and mood was flat, isolative, confused and preoccupied. Pt eye contact was ok. Pt met with her sponsor for about an hour and it appeared to go well. Pt attended meals in D.R. and ate 100% of breakfast and lunch. Pt declined to attend group and unit activities. Pt maintained behavior throughout the shift. Pt was polite, pleasant and cooperative. Pt was isolative and in her room and in bed most of the shift. Pt took a shower and attended to ADL's. Pt visited with bf during visitation hours. Pt walked and talked in hallway with him. Pt was observed every 15 minutes throughout the shift as ordered.
--- NOTE | 2016-11-07 04:28 | NUR ---
Nursing Note Early Childhood Associate 11pm to 7am Pt in bed at start of shift and slept soundly throughout the night. No concerns observed or reported. Monitored with q 15 min checks for safety location and accountability.
--- NOTE | 2016-11-07 08:58 | PROG NOTE ---
[address] [address] PROGRESS NOTE PATIENT: BEVERLY BOJORQUEZ : 1995 MR#: [id number] ADMIT: 10/25/2016 JOB ID: [id number] DATE: CHIEF COMPLAINT: "I am wondering if I can go to any of the AA meetings at the hospital if my AA sponsor takes me down there." HISTORY OF PRESENT ILLNESS: As stated above, the patient did speak with me at length this morning about her desire to actually attend some of the AA chapter meetings in the hospital. She indicates that she has attended several meetings in the past. I did inform her that I will check with staff on the rules and regulations. She made significantly improved eye contact today. She appreciated her increased visitation with her boyfriend, Negro, yesterday. She notes that she feels that her thoughts are much better and controlled. She denies any evidence of current disturbance of her thought process. There was a mild paucity but she responded appropriately indicating that she gets distracted at times. MENTAL STATUS EXAM: She was bright, cooperative, interactive. She maintained good eye contact. Her speech was a little bit latent but improved from prior. Her mood was neutral. Her affect was congruent. She denied any evidence of current suicidal, homicidal ideation. She denied any active hallucinations or delusions. She was alert, oriented to time and place. Her attention and concentration are improved. Insight and judgment are gaining. PHYSICAL EXAM: Vital signs are current. Temperature is 36.6, pulse 106, respirations 16, BP 96/62. MEDICATION REVIEW: 1. Invega Sustenna. Next injection on Monday. 2. Melatonin 5 mg q.h.s. 3. Vistaril 50 mg t.i.d. p.r.n. 4. Risperdal 1 mg b.i.d. ASSESSMENT: [place] I1. Psychotic disorder, not otherwise specified. 2. Polysubstance use disorder. 3. Substance-induced mood disorder. 4. Substance-induced psychoses, resolving. [place] IIDeferred. [place] IIINone. [place] IVStressors are noted for chronic disturbance of substance use. [place] VGlobal assessment of functioning current 35. PLAN: 1. Recommendations for Invega Sustenna injection on November 08 with scheduled discharge. 2. Continuation of all other medications noted. 3. Clarification of participation in local AA chapter meetings to be completed with staff members.
[2016-11-07] MEDS: risperiDONE 1 mg Tablet PO SCH (09:20)
[2016-11-07 10:32] VITALS: BP 107/67; PULSE 93; RESP 16
--- NOTE | 2016-11-07 12:58 | NUR ---
Privacy Director./ c.m. S.:"I'm ok." O.: met with pt. in her room. She completed Safety plan. She was notified about getting her injection today. She was pleased to hear that she would be able to go home after the injection. She slept "ok" last night. She denied SI/HI, denied AH/VH, denied depression or anxiety. She said that she had "a ride home". She has intake appt. for mental health services tomorrow, November 08 at [address] [facility] ([phone]). A.: pt. is cooperative, pleasant, quiet. She has a soft voice and a slow response. P.: monitor behavior, follow care plan.
--- NOTE | 2016-11-07 12:59 | PCM.DIMED ---
Discharge Instructions Date of Service Nov 07, 2016 Dates of Hospitalization Oct 25, 2016 at 20:00 Discharge Diagnosis Discharge Diagnosis Psychosis NOS Polysubstance Use DO with Methamphetamines Diet No restrictions Activity No restrictions Osbaldo Moralez DO Nov 07, 2016 12:59
[2016-11-07] MEDS ORDERED: PALI156D IM (13:00)
[2016-11-07] MEDS ORDERED: MELA5TAB14 PO (13:00)
[2016-11-07] MEDS ORDERED: RISP1TAB90 PO (13:00)
[2016-11-07] MEDS ORDERED: Paliperidone Palmitate 156 mg/mL Inj (NC) IM SCH (13:00)
--- NOTE | 2016-11-07 13:27 | DIS ---
[address] [address] DISCHARGE SUMMARY PATIENT: BEVERLY BOJORQUEZ : 1995 MR#: [id number] ADMIT: 10/25/2016 JOB ID: [id number] DIS: DATE: 11/07/2016 CHIEF COMPLAINT: "I think I am doing better." This is per patient report. HISTORY OF PRESENT ILLNESS: As stated above, the patient did identify that she feels that she is doing a little bit better this morning. She smiled throughout the course of conversation, indicating that it was nice to have visitors yesterday. She reports that she did have her local AA sponsor, as well as her boyfriend visit several times throughout the daytime. OBJECTIVE: On mental status exam, she was bright, cooperative. She maintained good eye contact. As noted above, she smiled consistently throughout the course of the interview and appeared to be genuine. Her mood was neutral. Her affect was congruent. Her thought process showed no evidence of racing thoughts, flight of ideas, loose or disconnected thinking. Thought content: She denied any evidence of current suicidal, homicidal ideation. She denied any active hallucinations or delusions. She was alert, oriented to time and place. Her attention and concentration intact. Her memory intact in the short term, jail, recent. Insight and judgment are fair. PHYSICAL EXAM: Vital signs are current. Temperature was 35.2, pulse 93, respirations 16, BP 107/67. MEDICATION REVIEW: Includes: 1. Invega Sustenna 156 mg to be given today. 2. Melatonin 5 mg q.h.s. 3. Risperdal 1 mg b.i.d. ASSESSMENT: AXIS I: 1. Psychotic disorder, not otherwise specified. 2. Polysubstance use disorder, including methamphetamines. 3. Probable substance-induced psychoses. AXIS II: Deferred. AXIS III: None. AXIS IV: Stressors are noted for chronic mental health issues. AXIS V: Global Assessment of Functioning of current 35. PLAN: 1. Recommendations for continuation of all medications noted. 2. Scheduled discharge for tomorrow with aftercare including referrals to [facility].
--- NOTE | 2016-11-07 14:04 | NUR ---
Nursing Note Discharge S/O: Pt discharged at 1400 with boyfriend. Pt denies suicidal/homicidal ideation, depression, anxiety, & hallucinations. Scripts faxed to [facility] in [place]. Pt pleasant & cooperative with discharge process. Pt signed all paperwork & expressed understanding of appointments. Copy given to pt of paperwork. All belongings taken with pt.
[2016-11-08] MEDS ORDERED: Paliperidone Palmitate 156 mg/mL Inj (NC) IM SCH (13:00)
== END 2016-11-07 14:00 | disposition home or self-care (01) | DRG 897 ==
LOC: SED 09:05 → MHC 20:00
PROVIDERS: ADMIT Psychiatry & Neurology Psychiatry; ATTEND Psychiatry & Neurology Psychiatry
DX: F19.159 Other psychoactive substance abuse with psychoactive substance-induced psychotic disorder, unspecified (principal); F11.159 Opioid abuse with opioid-induced psychotic disorder, unspecified; F10.159 Alcohol abuse with alcohol-induced psychotic disorder, unspecified; F31.9 Bipolar disorder, unspecified; F15.159 Other stimulant abuse with stimulant-induced psychotic disorder, unspecified; F20.9 Schizophrenia, unspecified

== ENCOUNTER 2016-11-29 16:07 | Emergency (ER) | payer MEDICAID, OTHER ==
[~2016-11-29] VITALS: Ht 168.9 cm; Wt 63.2 kg
[~2016-11-29 16:07] MED LIST changes: -ALBU8.5H4 IH; +KETO5DRO68 BOTH_EYES; +MELA5TAB14 PO; +MULT-140 PO; +PALI156D IM; +RISP1TAB90 PO
[2016-11-29 16:14] VITALS: BP 112/71; PULSE 109; RESP 16; O2SAT 97
--- NOTE | 2016-11-29 17:52 | ED.REPORT ---
HPI-Psychiatric Illness Date of Service Nov 29, 2016 ED Provider: Toño Griffith PA-C Jonna is a 21-year-old female referred to the emergency department by her counselor with a chief complaint of suicidal ideation. The patient presents with apparently a supportive boyfriend. She reports that she has had worsening depression and suicidal ideation for the last 2 weeks. Patient admits to a plan insisting of laying on railroad tracks. Admits history of hospitalization and psychiatric diagnoses that she is unsure which. She reports 3 previous attempts by cutting and taking pills, most recent approximately one year ago. Denies access to firearms, drug use, alcohol use, suicide of friends or family. She was [place] [facility] [place] taking Invega sustena and Risperdal. She reports taking her Risperdal according to schedule. Admits to thoughts of hurting others, indicating her boyfriend and stating after a pause "I saw his veins just now and thought of cutting them." Denies auditory or visual hallucinations. Nursing Notes Stated Complaint: SUICIDAL Chief Complaint: Psychiatric Complaint Nursing Notes Reviewed: Yes Allergies: Coded Allergies: No Known Drug Allergies (Verified Allergy, Unknown, 11/29/16) Cat Dander (Verified Adverse Reaction, Mild, DIFFICULT BREATHING, 11/29/16) Uncoded Allergies: ONIONS (Allergy, Mild, RASH, 08/23/12) Scheduled Multivit with Calcium,Iron,Min (Therapeutic M) 1 Each Tablet 1 EACH PO DAILY Paliperidone Palmitate Inj (Invega Sustenna) 156 Mg/1 Ml Syringe 156 MG IM Q30D Risperidone (Risperdal) 1 Mg Tablet 1 MG PO BID Scheduled PRN Ketotifen Fumarate (Zaditor) 5 Ml Drops 2 DROP BOTH_EYES Q12 PRN PRN allergies Melatonin (Melatonin) 5 Mg Tablet 5 MG PO HS PRN PRN For Insomnia General Time Seen by MD: 17:23 Chief Complaint Suicidal ideation Risk-Psychiatric Illness Suicide Risk Stratification Suicide Risk Factors - Adult: : Previous attempt: Prior psych admissionNo: Access to firearms, Alcohol use, Close associate suicide, Family Hx of Suicide, Substance abuse RF Statements: Risk factors reviewed Past Medical History Past Medical History RAD during childhood History of alcohol and drug abuse, 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 Past Surgical History pilonidal cyst Smoking History Current Every Day Smoker Social History Alcohol Use: "Social" Drug Use: IV drugs, Meth Other Social History: Good social support, Local resident Occupation lives with roommate 10/22/2016 has supportive boyfriend who lives on [address] [facility] Status Independent Review of Systems General: Denies fever, chills, malaise. HEENT: Denies congestion, headache, sore throat. Respiratory: Denies dyspnea, cough, shortness of breath, wheezing. Cardiovascular: Denies chest pain, palpitations. Gastrointestinal: Denies vomiting, diarrhea, abdominal pain. Genitourinary: Denies frequency, urgency, dysuria, hematuria. Otherwise as noted in HPI. Physical Exam General: Well developed, well nourished, mild distress. Head: Atraumatic, normocephalic. Eyes: No scleral icterus or injection. No discharge. Vision grossly intact. ENT: Voice clear, hearing grossly intact. Respiratory: Regular rate and rhythm. Breath sounds present, clear to auscultation and equal bilaterally. No respiratory distress. No increased work of breathing, speaks in complete sentences. Cardiovascular: Regular rate and rhythm, without murmur, gallop or rub. No pedal edema. Gastrointestinal: Abdomen flat and non-tender without guarding or rebound. Bowel sounds normoactive. Skin: Warm and dry. Neurological: Grossly nonfocal. Psychological: Alert and oriented. Flat affect. Responses to questions are significantly delayed, possibly indicating responded to internal stimuli. Responses are quite brief. Her speech is linear and logical. She is tearful. Initial Vital Signs Vital Signs (First) Date Time Temp Pulse Resp B/P Pulse Ox O2 Delivery O2 Flow Rate FiO2 11/29/16 16:14 36.7 109 16 112/71 97 Room Air Initial VS: Vital signs normal Interpretation & Diagnostics Lab Results Interpretation Test 11/29/16 16:40 Hold Urine Received (Received) Re-Eval/Medical Decision Med Decision/Clinical Course 21-year-old female with a history of depression and suicidal ideation as well as attempts presents at the behest of her counselor for suicidal ideation. She reports being discharged from [facility] several weeks ago medications which she feels are not helping her sufficiently. She reports increasing depression and suicidal ideation over the last 2 weeks. She admits a plan involving laying her head on railroad tracks. She states that she does however feel safe to return to home. After discussions with both me and he and Prashant Hawkins, we feel that she is a good candidate to return home for outpatient treatment. Inpatient treatment is offered, but the patient prefers to return home. She denies intent to commit suicide. She has good support in her boyfriend. He reports that he would be able to bring her back to the department if her condition deteriorates. She has follow-up this coming Monday. Provided return precautions. Both the patient and her boyfriend verbalized understanding and consented to the plan. Discharge & Departure Impression: Primary Impression: Suicidal ideation )( Condition at Discharge: No danger to self, No danger to others Disposition: Home Discharge Condition All VS Reviewed: Yes Condition: Stable Additional Instructions: Evaluation for suicidal ideation in the emergency department. Discussions with both myself and the social work administrator, you decided that you would prefer to address your concerns on an outpatient basis. You have stated that you feel safe to return home until Monday when you will have follow-up, and I take you at your word on this. It appears that you have good support. Follow-up with your mental health provider at [facility] on Monday. Return to the emergency department for any new or worsening symptoms such as a compulsion to act on thoughts of harming yourself or others, troubling auditory or visual hallucinations. Referrals: [facility] EDSupervising Provider for APC: Jaswinder Varner DO copies to: [facility] Toño Griffith PA-C Nov 29, 2016 17:52
[2016-11-29 19:12] VITALS: BP 111/69; PULSE 79; RESP 16; O2SAT 97
== END 2016-11-29 19:13 | disposition home or self-care (01) ==
LOC: SED 16:07
DX: R45.851 Suicidal ideations (principal); F17.200 Nicotine dependence, unspecified, uncomplicated

== ENCOUNTER 2017-02-23 20:21 | Emergency (ER) | payer OTHER ==
[~2017-02-23] VITALS: Ht 170.2 cm; Wt 67.0 kg
[2017-02-23 20:26] VITALS: BP 98/59; PULSE 106; RESP 20; O2SAT 94
--- NOTE | 2017-02-23 21:07 | ED.REPORT ---
HPI-General Illness Date of Service Feb 23, 2017 ED Provider: Jefferson Kingsley MD Pt is a healthy 22 y/o female presenting to the ED c/o clear productive cough onset 2 days ago. She c/o associated dyspnea for 1 day, myalgia, sneezing, chills, wheezing. Pt denies fever. She has no history of asthma and does not use an inhaler. She was diagnosed with reactive airways disease as a child. She has a sick contact with her sister has had recent URI symptoms. Nursing Notes Stated Complaint: DIFFICULTY BREATHING Chief Complaint: Respiratory Distress Nursing Notes Reviewed: Yes Allergies: Coded Allergies: No Known Drug Allergies (Verified Allergy, Unknown, 11/29/16) Cat Dander (Verified Adverse Reaction, Mild, DIFFICULT BREATHING, 11/29/16) Uncoded Allergies: ONIONS (Allergy, Mild, RASH, 08/23/12) Scheduled Multivit with Calcium,Iron,Min (Therapeutic M) 1 Each Tablet 1 EACH PO DAILY Paliperidone Palmitate Inj (Invega Sustenna) 156 Mg/1 Ml Syringe 156 MG IM Q30D Prednisone (PredniSONE) 20 Mg Tablet 40 MG PO DAILY Risperidone (Risperdal) 1 Mg Tablet 1 MG PO BID Scheduled PRN Ketotifen Fumarate (Zaditor) 5 Ml Drops 2 DROP BOTH_EYES Q12 PRN PRN allergies Melatonin (Melatonin) 5 Mg Tablet 5 MG PO HS PRN PRN For Insomnia General Time Seen by MD: 20:30 Chief Complaint Cough Hx Obtained From: Patient Arrived By: Walk-in Sudden in Onset?: No Onset Occurred: 2 days ago Symptom Duration: Since onset Severity: Current: No pain currently Severity: Maximum: No pain Recent Healthcare: Previous diagnosis Similar Sx Previous: Yes Past Medical History Past Medical History RAD during childhood History of alcohol and drug abuse, 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 Past Surgical History pilonidal cyst Smoking History Current Every Day Smoker Social History Alcohol Use: "Social" Drug Use: IV drugs, Meth Other Social History: Good social support, Local resident Occupation lives with roommate 10/22/2016 has supportive boyfriend who lives on [facility] Status Independent Review of Systems Full Review of Systems Constitutional: Reports: Chills, Denies: Fever Respiratory: Reports: Prod cough, clear, Shortness of breath, Wheezing Cardiovascular: Denies: Chest pain GI: Denies: Abdominal pain, Nausea, Vomiting Complete sys rev & neg: except as marked. Physical Exam Vital Signs Vital Signs Date Time Temp Pulse Resp B/P Pulse Ox O2 Delivery O2 Flow Rate FiO2 02/23/17 21:59 36.4 97 20 119/64 96 Room Air 02/23/17 21:29 82 18 97 Room Air 02/23/17 20:26 36.6 106 20 98/59 94 Room Air Initial VS: Reviewed, Vital signs abnormal Head / Eyes: Atraumatic, Normocephalic, PERRL ENT: Mucous membranes moist, Conjunctiva normal, No scleral icterus Neck: Supple, Full range of motion Cardiovascular: Regular rate & rhythm, Heart sounds normal, Intact distal pulses Abdomen / GI: Soft, Non-tender Extremities: Vascular intact, Neuro intact, No swelling Skin: Warm, Dry, No cyanosis Neurologic: Alert, Oriented, Nonfocal Psychiatric: Mood/affect normal, Behavior normal, Normal thought content Respiratory / Chest: Breath sounds = bilat, No respiratory distress, No retractions, No stridor Coarse breath sounds throughout. Diffuse expiratory wheezing. Interpretation & Diagnostics Lab Results Interpretation Test 02/23/17 20:55 Hold Urine Received (Received) X-Ray Chest Interpretation Chest Xray Interpretation: IMPRESSION: 1. No acute cardiopulmonary disease. Dictated by: Dilan Dhaliwal M.D. on 02/23/2017 at 21:05 Approved by: Dilan Dhaliwal M.D. on 02/23/2017 at 21:06 View: Portable, AP & lat Interpretation / Wet Read by: Interpret - Radiologist Re-Eval/Medical Decision Med Decision/Clinical Course Pt is a healthy 22 y/o female presenting to the ED c/o clear productive cough onset 2 days ago. She c/o associated dyspnea for 1 day, myalgia, sneezing, chills, wheezing. Pt denies fever. She has no history of asthma and does not use an inhaler. She was diagnosed with reactive airways disease as a child. She has a sick contact with her sister has had recent URI symptoms. Here in the emergency department the patient is afebrile hemodynamically stable though she has significant wheezing throughout both lung cadet with a nonproductive cough and runny nose. She is in moderate respiratory distress. Patient was treated with [id number] DuoNeb and serially reassessed. She had improvement in her respiratory distress and was able to ambulate without desaturation. Chest x-ray was obtained and demonstrated no focal consolidation or acute cardiopulmonary process. Upreg neg. Overall presentation consistent with reactive airway exacerbation in the setting of upper respiratory infection. No evidence of bacterial pneumonia at this time. I do not feel that the patient requires antibiotics. Patient has been provided with an albuterol MDI and spacer and advised to use this every 2- 4 hours for the next 48 hours and as needed thereafter. Patient has been placed on a five-day course of prednisone and first dose was administered here in the emergency department. At this time, I feel that she is appropriate for discharge. Prior to discharge follow-up and return precautions were reviewed in detail with the patient who verbalized understanding and agreement with the plan. The patient was discharged in stable condition. Counseled Regarding: Diagnosis, Need for follow-up, When/why to return to ED Discharge & Departure Primary Impression: URI (upper respiratory infection) URI type: unspecified viral URI Qualified Code: J06.9 - Acute upper respiratory infection, unspecified Additional Impressions: Reactive airway disease Asthma severity: mild intermittent Asthma complication type: uncomplicated Qualified Code: J45.20 - Mild intermittent asthma, uncomplicated Respiratory distress Wheezing Disposition: Home Discharge Condition All VS Reviewed: Yes Condition: Stable Patient Instructions: Reactive Airways Disease (ED) Additional Instructions: Thank you for seeking care at the emergency room. It is difficult for us to make definitive diagnoses in the ED but we believe that you are experiencing reactive airways disease caused by an upper respiratory infection. The x-ray showed no signs of pneumonia. Our primary goal today in the ED was to evaluate you for any life-threatening conditions. Your evaluation was reassuring. You will be discharged with a prescription for Prednisone. Take the full course as directed. Use the prescribed albuterol inhaler every 2-4 hours as needed. You should follow-up with your primary doctor in the next week. You should return to the ED immediately if you develop fevers, vomiting, worsening shortness of breath, lightheadedness, weakness or any other concerning signs or symptoms. Thank you for letting us partake in your care today. Referrals: Yusuf Negrotan DIDI (PCP) Crit Care Except Billable Proc Time Spent: 30-74 minutes Services Performed: Patient management by me, Time spent at bedside, Reviewing test results, Reviewing imaging, Discussing patient care, Documentation in record, Time with fam/surrogate Scribe Attestation Portions of this note were transcribed by Victor M Lyn. I, Dr. Kingsley, personally performed the history, physical exam and medical decision-making; I reviewed and confirmed the accuracy of the information in the transcribed note. Signed by Harrison Márquez, 02/23/174 copies to: Geraldo Negro Beck O MD Feb 23, 2017 21:07 VICTOR M LYN Feb 23, 2017 21:11
[2017-02-23] MEDS ORDERED: PRE20 PO (21:08)
--- NOTE | 2017-02-23 21:08 | DRSVH ---
PROCEDURE: X-RAY CHEST, TWO VIEWS ([id number]) INDICATIONS: cough TECHNIQUE: 2 views of the chest were acquired. COMPARISON: [facility], CR, XR ABD ACUTE SERIES 3VW, 07/13/2016, 9:35. FINDINGS: Surgical changes and devices: None. Lungs and pleura: No pleural effusions or pneumothorax. Lungs are clear. Mediastinum: Mediastinal contours are normal. Heart size is normal. Bones and chest wall: No suspicious bony abnormalities. Soft tissues appear unremarkable. IMPRESSION: 1. No acute cardiopulmonary disease. Dictated by: Dilan Dhaliwal M.D. on 02/23/2017 at 21:05 Approved by: Dilan Dhaliwal M.D. on 02/23/2017 at 21:06
[2017-02-23] MEDS ORDERED: Albuterol-Ipratropium 3 mL Inhalation Solution NEB ONE (21:10)
[2017-02-23] MEDS ORDERED: Albuterol HFA 60 Puff 8 Gm Inhaler INHALATION PRN (21:10)
[2017-02-23] MEDS ORDERED: predniSONE 20 mg Tablet PO ONE (21:10)
[2017-02-23] MEDS ORDERED: _Albuterol-HFA 60 Puff Inhaler INHALATION SCH (21:25)
[2017-02-23 21:29] VITALS: PULSE 82; RESP 18; O2SAT 97
[2017-02-23 21:59] VITALS: BP 119/64; PULSE 97; RESP 20; O2SAT 96
== END 2017-02-23 21:59 | disposition home or self-care (01) ==
LOC: SED 20:21
DX: J06.9 Acute upper respiratory infection, unspecified (principal); J45.20 Mild intermittent asthma, uncomplicated; M79.1 Myalgia; F17.200 Nicotine dependence, unspecified, uncomplicated; Z88.8 Allergy status to other drugs, medicaments and biological substances
CPT/HCPCS: 71020; 81025; 94640; 94664; 99291; J7620